=== PATIENT | female | born 1945 | race Caucasian/White ===

== ENCOUNTER 2016-12-20 07:30 | Inpatient (IN) | payer OTHER ==
[2016-12-20] VITALS (22 sets, daily range): BP systolic 107–225; BP diastolic 66–105
[~2016-12-20] VITALS: Ht 172.7 cm; Wt 89.4 kg
--- NOTE | ~2016-12-20 | HC ---
[facility] [place] [address] CONSULTATION Name: NATANAEL HINOJOSA Room #: 200-I ADM IN M.R.#: [id number] Admission: 12/20/16 Attend Phys: Jake Zepeda MD Discharge: Date of : 41 Report #: [id number] THIS REPORT FOR: //name// [facility]: [facility] HISTORY OF PRESENT ILLNESS: The patient is a 71-year-old white female with premorbid history of hypertension, diabetes mellitus, hyperlipidemia, CML who was admitted with increased shortness of breath. Her course was complicated by a code blue with cardiac arrest December 20. She initially had been admitted with severe hypertension. She had a course complicated post the code blue with hypercapnic respiratory failure, was treated for acute congestive heart failure, acute renal insufficiency, question acute tubular necrosis that has since resolved. She has since been extubated. Hematology is involved with her CML. She is being evaluated by Cardiology. We are seeing her now in rehabilitation medicine consultation. PAST MEDICAL HISTORY: Includes CML, hypertension. PAST SURGICAL HISTORY: Includes thyroidectomy, cholecystectomy, skin cancer with melanoma surgery, cornea transplant times four, vitrectomy. HABITS: Former smoker, quit greater than a year ago. No history of ETOH abuse. ALLERGIES: PENICILLIN, DOXYCYCLINE, BENZALKONIUM CHLORIDE and TRAVOPROST. SOCIAL HISTORY: Lives in a house, used a cane. Two steps in. She lives there with her daughter, noted to be developmentally delayed. There is a [id number] apparently in the area that can help as well. Per chart notes, the family could stay with her for a few days if warranted. REVIEW OF SYSTEMS: Did not offer any complaints of chest pain, shortness of breath or abdominal discomfort. No focal extremity pain complaints were verbalized. PHYSICAL EXAMINATION: GENERAL: A 71-year-old white female in no obvious distress. VITAL SIGNS: Last recorded temperature is 99.2, pulse 83, respirations 18, blood pressure 138/75. NEUROLOGIC: She is alert, pleasant, appears to be reasonable with her comments. Facies appeared symmetric. No focal extremity weakness involving her upper body was noted. Lower extremities, no focal distal edema. She is demonstrating strength at least a grade 4-/5. She is min assist with sit to stand transfers, is ambulating 15 feet with a front-wheeled walker. I did see her ambulating as well without the walker in the room and she was at least to contact guard assistance. [address] [address] CONSULTATION Name: NATANAEL HINOJOSA Room #: 200-I ADM IN [facility].#: [id number] Admission: 12/20/16 Attend Phys: Jake Zepeda MD Discharge: Date of : 43 Report #: [id number] ASSESSMENT: A 71-year-old white female with the following problem list: 1. Cardiopulmonary arrest with hypercapnic respiratory failure. She has now been extubated. 2. Code blue on 12/20/2016 noted to be pulseless electrical activity. 3. Initial severe hypertension. 4. Congestive heart failure, noted to be acute. 5. Acute renal insufficiency, now resolved. 6. History of CML with hematology involved. 7. Diabetes mellitus. PLAN: Therapy evaluations are continuing. She was last seen by Physical Therapy on the . She appears to be moving better now and will see how she does in therapies with further assessments. The goal is to improve her overall functional mobility and ADL with the hope of returning back to the home setting. At this point, we will continue to follow along with you regarding her rehab therapy needs. By: 1132 0119 Alvin Yañez MD /nt
--- NOTE | ~2016-12-20 | 2DMMODE ---
[facility] [place] [address] 2 D/M-MODE ECHOCARDIOGRAM Name: NATANAEL HINOJOSA Harsha Room #: 246-P [facility] IN ..#: [id number] Admission: 12/20/16 Attend Phys: Jake Zepeda MD Discharge: Date of : 41 Date of Service: 12/21/16 0901 Report #: [id number] THIS REPORT FOR: //name// APPROVED REPORT Study performed: 12/21/2016 08:01:07 EXAM: Comprehensive 2D, Doppler, and color-flow Echocardiogram Patient Location: Bedside Room #: 246 Blood Pressure: 123/61 mmHg HR: 79 bpm Other Information Study Quality: Adequate/Patient in ICU on vent Indications Acute CHF exacerbation, s/p cardiopulmonary arrest. Hx: HTN, HLP, DM 2D Dimensions RVDd: 41.15 mm LVEF(%): 49.34 (>50%) IVSd: 9.22 (7-11mm) LVOT Diam: 20.84 (18-24mm) LVDd: 56.06 mm PWd: 9.91 (7-11mm) Ascending Aorta: 31.13 mm LVDs: 41.87 (25-40mm) Aortic Root: 28.03 mm Medrano's LVEF: 49.34 % Volumes Left Atrial Volume (Systole) Single Plane 4CH: 55.79 mL Single Plane 2CH: 56.34 mL LA ESV Index: 30.00 mL/m2 Aortic Valve AoV Peak Kendall.: 1.98 m/s AO Peak Gr.: 15.64 mmHg LV Max P.88 mmHg LV Max: 1.57 m/s Mitral Valve E/A Ratio: 0.9 MV Decel. Time: 214.90 ms MV E Max Kendall.: 1.05 m/s [facility] [place] [address] 2 D/M-MODE ECHOCARDIOGRAM Name: NATANAEL HINOJOSA Room #: 246-P [facility] IN M.R.#: [id number] Admission: 12/20/16 Attend Phys: Jake Zepeda MD Discharge: Date of : 43 Date of Service: 12/21/16 0901 Report #: [id number] MV A Kendall.: 1.20 m/s MV PHT: 62.32 ms Pulmonary Valve PV Peak Kendall.: 1.40 m/s PV Peak Gr.: 7.80 mmHg Pulmonary Vein P Vein S: 65.0 m/s P Vein D: 52.4 m/s P Vein A Dur.: 40.6 m/s PVa Duration: 80 Tricuspid Valve TR Peak Kendall.: 2.71 m/s RAP Estimate: 15.00 mmHg TR Peak Gr.: 29.27 mmHg RVSP: 44.00 mmHg Left Ventricle The left ventricle is normal size. There is normal LV segmental wall motion. There is normal left ventricular wall thickness. Left ventricular systolic function is normal. LVEF is 50-55%. Grade I - abnormal relaxation pattern. Right Ventricle The right ventricle is normal size. The right ventricular systolic function is normal. Atria Left atrium is mildly dilated. The right atrium size is normal. Aortic Valve The aortic valve is normal in structure. No aortic regurgitation is present. There is no aortic valvular stenosis. Mitral Valve Mild mitral annular calcification. No mitral regurgitation. Tricuspid Valve The tricuspid valve is normal in structure. There is trace tricuspid regurgitation. The right atrial pressure is estimated at 15 mmHg. There is moderate pulmonary hypertension with an estimated PAP of 44mmHg. Pulmonic Valve The pulmonary valve is normal in structure. Trace pulmonic regurgitation. [address] [address] 2 D/M-MODE ECHOCARDIOGRAM Name: NATANAEL HINOJOSA Harsha Room #: 246-P [facility] IN ..#: [id number] Admission: 12/20/16 Attend Phys: Jake Zepeda MD Discharge: Date of : 43 Date of Service: 12/21/16 0901 Report #: [id number] Great Vessels The aortic root is normal in size. The ascending aorta is normal in size. Descending aorta is not well visualized. IVC is dilated and collapses <50% with inspiration. Pericardium There is no pericardial effusion. <Conclusion> Left ventricular systolic function is normal. There is normal LV segmental wall motion. LVEF is 50-55%. Grade I diastolic dysfunction The aortic valve is normal in structure. No aortic regurgitation or stenosis Mild mitral annular calcification. No mitral regurgitation. There is moderate pulmonary hypertension with an estimated PAP of 44mmHg. There is no pericardial effusion. <ELECTRONICALLY SIGNED> By: Sang He MD, FACC 12/21/16900 0 0 Sang He MD, FACC /INF
--- NOTE | ~2016-12-20 | HC ---
[facility] [place] [address] CONSULTATION Name: NATANAEL HINOJOSA Harsha Room #: 246-P [facility] IN M.R.#: [id number] Admission: 12/20/16 Attend Phys: Jake Zepeda MD Discharge: Date of : 43 Report #: [id number] THIS REPORT FOR: //name// [facility]: [facility] HISTORY OF PRESENT ILLNESS: This patient is known to me from recent diagnosis of chronic myelogenous leukemia. She was admitted through the Emergency Department with complaints of worsening shortness of breath over the past 2 weeks. She currently is in the ICU on a ventilator/intubated but was alert and responsive. On 11/22/2016, she was placed on Sprycel for chronic myelogenous leukemia with a white count of . When I saw her on 12/01/2016, her white count had dropped to 11,700 with a hemoglobin of 11.1 and platelet count of 411,000. An echocardiogram at [facility] prior to treatment showed an ejection fraction of 60%. Her current hemogram shows development of worsening anemia along with thrombocytopenia. PAST MEDICAL HISTORY: Significant for prior melanoma resection. She has had previous thyroidectomy, cholecystectomy, a corneal transplant and history of AVM. ALLERGIES: DOXYCYCLINE, PENICILLIN and TRAVOPROST. HOME MEDICATIONS: In addition to Sprycel include diclofenac, Flonase, metformin, Synthroid, Reglan, omeprazole, Zocor, glipizide, Ditropan, lisinopril, Timoptic, metoprolol, Bactrim and baclofen. FAMILY HISTORY: Noncontributory. SOCIAL HISTORY: She is a reformed smoker who stopped a year ago. REVIEW OF SYSTEMS: Negative for any sweats, chills or fevers. She is unaware of any recent infections. She denies any pain or masses. PHYSICAL EXAMINATION: GENERAL: Shows her to be alert and responsive. HEENT: Shows endotracheal tube in place. NECK: Supple. CHEST: Shows scattered rhonchi. CARDIOVASCULAR: Normal S1, S2. BREASTS: Show no worrisome masses. ABDOMEN: Shows no organomegaly or masses. EXTREMITIES: No clubbing, cyanosis or edema. [facility] [address] [place] [address] CONSULTATION Name: NATANAEL HINOJOSA Room #: 246-P [facility] IN ..#: [id number] Admission: 12/20/16 Attend Phys: Jake Zepeda MD Discharge: Date of : 43 Report #: [id number] NEUROLOGIC: No focal localizing signs. PSYCHIATRIC: Not agitated or confused. SKIN: Clear. LYMPHATICS: Revealed no supraclavicular adenopathy. LABORATORY DATA: Her chest x-ray shows perihilar infiltrates with acute hypercapnic hypoxic respiratory failure on her blood gases and metabolic acidosis along with hypokalemia. ASSESSMENT: Chronic myelogenous leukemia. PLAN: We discussed with her, we would hold her current Sprycel as her platelets have dropped and she is now thrombocytopenic and anemic. This drug can cause fluid retention along with pulmonary hypertension and may be contributing to her current shortness of breath, so earlier she was iron deficient on her marrow and with worsening anemia, these and other comorbidities with her prior smoking history are also involved. Hopefully, we can diurese her with subsequent improvement in her complaints and can transfuse if needed with packed red cells. Thanks for allowing me to see her in consultation asking me to participate in her care. <ELECTRONICALLY SIGNED> By: Radha Moreno MD 12/22/16 0924 1533 2135 Radha Moreno MD /nt
--- NOTE | ~2016-12-20 | EKG ---
[address] [place] [address] ELECTROCARDIOGRAM REPORT Name: ASHISHNATANAEL Mcleod Room #: 246-P ADM IN M.R.#: [id number] Admission: 12/20/16 Attend Phys: Jake Zepeda MD Discharge: Date of : 43 Report #: [id number] THIS REPORT FOR: //name// [facility] Test Date: 2016-12-22 Test Time: 12:39:10 Pat Name: NATANAEL HINOJOSA Department: Room: 246 P Gender: F Pediatric Nurse Practitioner: Samanta HORNE : 1945 Requested By: Fly Gilmore Order Number: [id number] MD: Sang He Measurements Intervals [place] Rate: 79 P: 62 [place]: 140 QRS: -9 QRSD: 97 T: -21 QT: 465 QTc: 534 Interpretive Statements Sinus rhythm Borderline T abnormalities Prolonged QT interval Compared to ECG 12/21/2016 06:36:32 Poor R-wave progression no longer present Electronically Signed On 12-23-2016 8:46:20 CDT by Sang He [email or web address] <ELECTRONICALLY SIGNED> By: Sang He MD, [facility] 12/23/16 0846 1239 1239 Sang He MD, [facility] /EPI
--- NOTE | ~2016-12-20 | EKG ---
[address] [place] [place] [address] ELECTROCARDIOGRAM REPORT Name: ASHISHNATANAEL Room #: 246-P ADM IN M.R.#: [id number] Admission: 12/20/16 Attend Phys: Jake Zepeda MD Discharge: Date of : 43 Report #: [id number] THIS REPORT FOR: //name// [facility] Test Date: 2016-12-21 Test Time: 06:36:32 Pat Name: NATANAEL HINOJOSA Department: Room: 246 P Gender: F Optometry Doctor: emmy : 1945 Requested By: Sang He Order Number: [id number] MD: Sang He Measurements Intervals [place] Rate: 75 P: 59 [place]: 133 QRS: -2 QRSD: 100 T: -11 QT: 494 QTc: 552 Interpretive Statements Sinus rhythm Poor R wave progression Borderline T abnormalities, inferior leads Prolonged QT interval Baseline wander in lead(s) V6 Compared to ECG 12/20/2016 07:58:59 axis has shifted rightward Electronically Signed On 12-21-2016 8:47:39 CDT by Sang He [email or web address] <ELECTRONICALLY SIGNED> By: Sang He MD, [facility] 12/21/16 0847 0636 0636 Sang He MD, [facility] /EPI
--- NOTE | ~2016-12-20 | HC ---
[facility] [place] [address] CONSULTATION Name: NATANAEL HINOJOSA Room #: 246-P ADM IN M.R.#: [id number] Admission: 12/20/16 Attend Phys: Jake Zepeda MD Discharge: Date of : 43 Report #: [id number] THIS REPORT FOR: //name// CC: Jake Harrison PRIMARY CARE PHYSICIAN: [facility]. REFERRAL PHYSICIAN: Jake Zepeda MD REASON FOR REFERRAL: Acute respiratory failure. HISTORY OF PRESENT ILLNESS: The patient is a 71-year-old white female who presents to the emergency room with progressive dyspnea. While in the ER, the patient was in severe respiratory distress and became apneic. CPR was performed, patient was intubated. A pulmonary consultation was requested. The patient has been sick for about a month. She was recently diagnosed with chronic myelogenous leukemia at [facility]. According to the family, the patient's white count has been up to 90,000. Again, she has dyspnea for the past month, which has progressively worsened. This morning, her dyspnea was much more severe. Chest x-ray suggests perihilar infiltrates. Otherwise, history is limited as the patient is intubated. She is orally intubated, but also an NG is in place with bloody secretions. PAST MEDICAL HISTORY: Notable for recent diagnosis of CML, undergoing treatment at [facility], history of AVM, melanoma status post surgical resection. PAST SURGICAL HISTORY: Include lens implantation, thyroidectomy, cholecystectomy, corneal transplant to the right eye. ALLERGIES: DOXYCYCLINE, PENICILLIN, TRAVOPROST. HOME MEDICATIONS: Include diclofenac, Flonase, metformin, Synthroid, Reglan, omeprazole, Zocor, glipizide, Ditropan, lisinopril, Timoptic eyedrops, metoprolol, Bactrim, baclofen. FAMILY HISTORY: Noncontributory. SOCIAL HISTORY: The patient has smoked in the past, but quit over a year ago. There is no history of alcohol use. REVIEW OF SYSTEMS: Deferred as the patient is intubated. [address] [address] CONSULTATION Name: NATANAEL HINOJOSA Harsha Room #: 246-P [facility] IN ..#: [id number] Admission: 12/20/16 Attend Phys: Jake Zepeda MD Discharge: Date of : 43 Report #: [id number] PHYSICAL EXAMINATION: GENERAL: She is sedated, but is awakening. She is orally intubated. VITAL SIGNS: Temperature is 99.3 degrees Fahrenheit, pulse is 100, respiratory rate is 22, blood pressure 144/92 mmHg, saturation 95%. HEENT: Normocephalic, atraumatic. She is orally intubated. NECK: Supple, without any lymphadenopathy or thyromegaly. CHEST: Breath sounds are moderate with few scattered crackles. CARDIOVASCULAR: Heart sounds, normal S1, S2. No obvious murmurs or gallop. Pulses are 2+/4+ bilaterally. BREASTS: Deferred. ABDOMEN: Soft, nontender, no organomegaly or masses felt. GENITOURINARY AND RECTAL: Deferred. EXTREMITIES: There is no cyanosis or clubbing, edema. LABORATORY DATA: Chest x-ray shows bilateral perihilar infiltrates. ET tube is inappropriate, 2.5 cm above the robert. No obvious effusion seen. NG is in place. CT head was unremarkable. Sodium 133, potassium 5.6, chloride 100, CO2 is 22, BUN is 27, creatinine is 1.1, on admission was 1.4, glucose was 300-400. Liver function profile is mildly elevated. WBC 10,400 without significant bandemia. Platelets mildly reduced at 108,000, hemoglobin is 9.4 with normal MCH, MCV. Albumin 2.7. Arterial blood gas on admission revealed pH 7.01, pCO2 60, pO2 194 on FiO2 of 60%. IMPRESSION: 1. Acute hypercapnic hypoxic respiratory failure in this 71-year-old white female. Chest x-ray shows perihilar infiltrates. She has a recent diagnosis of chronic myelogenous leukemia, currently undergoing chemotherapy. 2. Etiology likely related to congestive heart failure. Source of the heart failure possibly related to cardiomyopathy related to chemotherapeutic agent. Baseline echocardiogram would be helpful. Pneumonia is possible, though felt to be less likely. Pulmonary embolus is also felt to be less likely. 3. Chronic myelogenous leukemia, normally followed at [facility]. 4. Acute kidney injury, with marked improvement in creatinine. She also has metabolic acidosis along with hypokalemia. This is felt to be related to heart failure resulting in hypoperfusion, hypotension resulting in organ ischemia. 5. Elevated troponin due to increase in myocardial demand due to above. 6. Anemia, thrombocytopenia, presumably related to recent chemotherapy. Her white count was said to be 90,000, currently is 10,400. Records from [facility] will be requested. 7. Severe protein-calorie malnutrition with an albumin of 2.7. RECOMMENDATION: We will continue mechanical ventilation and wean once clinically stable. Agree with diuretics. We will continue to monitor metabolic acidosis closely. She is correcting nicely. She is also responding to Lasix very well. We will sent sputum for Gram stain culture and sensitivity. [facility] [address] [place] [address] CONSULTATION Name: NATANAEL HINOJOSA Room #: 246-P ADM IN ..#: [id number] Admission: 12/20/16 Attend Phys: Jake Zepeda MD Discharge: Date of : 43 Report #: [id number] GI prophylaxis will be addressed. Thank you for this consultation. <ELECTRONICALLY SIGNED> By: Quinton Etinene MD 12/21/16 1521 1422 2222 Quinton Etienne MD /nt
--- NOTE | ~2016-12-20 | EKG ---
[address] [address] [place] [address] ELECTROCARDIOGRAM REPORT Name: NATANAEL HINOJOSA Room #: REG DYLAN Kelly#: [id number] Admission: 12/20/16 Attend Phys: Discharge: Date of : 41 Report #: [id number] THIS REPORT FOR: //name// [facility] ED Test Date: 2016-12-20 Test Time: 07:58:59 Pat Name: NATANAEL HINOJOSA Department: Room: Gender: F Technician Assistant: [email or web address] : 1945 Requested By: Shahriar Rhoades Order Number: [id number] MD: Sang He Measurements Intervals [place] Rate: 120 P: 56 [place]: 117 QRS: -49 QRSD: 120 T: 103 QT: 327 QTc: 462 Interpretive Statements Sinus tachycardia Left anterior fascicular block Poor R-wave progression Baseline wander Compared to ECG 11/21/2016 16:27:14 Left anterior fascicular block now present nonspecific change in the ST and T wave segments Heart rate has increased nonspecific intraventricular conduction delay is present Electronically Signed On 12-20-2016 8:43:44 CDT by Sang He [email or web address] <ELECTRONICALLY SIGNED> By: Sang He MD, [facility] 12/20/16 0843 0758 0758 Sang He MD, [facility] /EPI
--- NOTE | ~2016-12-20 | EKG ---
[place] [address] [facility] [place] [address] ELECTROCARDIOGRAM REPORT Name: ASHISHNATANAEL Mcleod Room #: 246-P ADM IN M.R.#: [id number] Admission: 12/20/16 Attend Phys: Jake Zepeda MD Discharge: Date of : 43 Report #: [id number] THIS REPORT FOR: //name// [facility] ED Test Date: 2016-12-20 Test Time: 09:18:05 Pat Name: NATANAEL HINOJOSA Department: Room: 246 P Gender: F Tarring Machine Operator: jones rincon : 1945 Requested By: Shahriar Rhoades Order Number: [id number] MD: Sang He Measurements Intervals [place] Rate: 115 P: 66 SD: 149 QRS: -42 QRSD: 110 T: 81 QT: 344 QTc: 476 Interpretive Statements Sinus tachycardia Left anterior fascicular block Poor R wave progression Compared to ECG 12/20/2016 07:58:59 no significant change was found Electronically Signed On 12-21-2016 8:26:45 CDT by Sang He [email or web address] <ELECTRONICALLY SIGNED> By: Sang He MD, [facility] 12/21/16825 7 7 Sang He MD, [facility] /EPI
[~2016-12-20 07:30] MED LIST: ADVAIR 250-501 EACH; BACTRIM DS TAB1 EACH PO; BETIMOL; BRIMONIDINE TAR1 BO1 OP; DICLOFENAC SOD50 M1 PO; DITROPAN XL10 MG PO; FEXOFENADINE HC30 MG PO; FLONASE 0.05%50 MCG NASAL; GLIPIZIDE XL5 MG PO; GLUMETZA1000 PO; IBUPROFEN 800800 M1 PO; LIORESAL 10 MG10 MG PO; LISINOPRIL40 MG PO; MECLIZINE HCL12.5 MG PO; METOPROLOL SUCC25 M1 PO; MURO-128 5% OPH15 M1 OP; OMEPRAZOLE20 M2 PO; REGLAN 5 MG TAB5 M1 PO; SYNTHROID112 MCG PO; TRUSOPT OCUMETE10 M1; ZOCOR 10 MG TAB10 M1 PO; ZOFRAN ODT4 MG PO; ZYMAR5 ML
[2016-12-20 08:03] LABS: ABG SAMPLE TYPE ARTERIAL; BE(vivo) -15.9 mmol/L (-2 to +3); HCO3 14.9 mmol/L (22.0-26.0); O2(CT) 14.6 mL/dL (15.0-23.0); O2Hb 97.8 % (92.0-98.0); PCO2 60.3 mmHg (35.0-45.0); PO2 194.9 mmHg (80.0-100.0); sO2 98.7 % (92.0-98.0); tCO2 16.8 mmol/L (24.0-30.0)
[2016-12-20 08:05] LABS: LACTATE 8.19 mmol/L (0.5-2.0); pH 7.012 (7.360-7.450)
[2016-12-20 08:06] LABS: STICK SITE R.RADIAL; TIDAL VOLUME 550 ml
[2016-12-20 08:24] LABS: HEMATOCRIT 30.3 % (37.0-47.0); HEMOGLOBIN 9.4 gm/dL (12.0-15.0); MCH 27.7 pg (26.0-34.0); MCHC 31.1 g/dL (28.0-37.0); PLATELET COUNT 108 thou/uL (150-400); RDW 27.4 % (10.5-14.5); WBC 10.4 thou/uL (4.0-11.0)
[2016-12-20 08:24] LABS: URINE BILIRUBIN NEGATIVE (Negative); URINE BLOOD NEGATIVE (Negative); URINE COLOR YELLOW; URINE GLUCOSE-RANDOM* NEGATIVE (Negative); URINE KETONES TRACE (Negative); URINE NITRITE NEGATIVE (Negative); URINE PROTEIN (DIPSTICK) 2+ (Negative); URINE UROBILINOGEN 0.2 E.U./dl (0.2-1.0)
[2016-12-20 08:27] LABS: MANUAL DIFF YES
[2016-12-20 08:35] LABS: CALCIUM 6.5 mg/dL (8.5-10.1); CREATININE 1.4 mg/dL (0.6-1.0); POTASSIUM 5.5 mmol/L (3.5-5.1)
[2016-12-20 08:37] LABS: INR 1.1; PROTIME 11.9 Seconds (9.3-11.4)
[2016-12-20 08:45] LABS: AMORPHOUS URATES Moderate /LPF (None Seen); BACTERIA 1-9 Few /HPF (None Seen); CASTS None Seen /LPF (None Seen); SQUAMOUS 0-3 Few /LPF (0-3); URINE RBC None Seen /HPF (0-2); URINE WBC None Seen /HPF (0-5)
[2016-12-20 08:47] LABS: ALBUMIN 2.7 g/dL (3.4-5.0); TOTAL BILIRUBIN 0.6 mg/dL (<0.1-1.0); TOTAL PROTEIN 6.5 g/dL (6.4-8.2); TROPONIN-I 0.16 ng/mL (<0.04-0.07)
[2016-12-20 08:49] LABS: ABSOLUTE NEUTROPHILS 7.5 thou/uL (1.4-8.2); ANISOCYTOSIS 3+; MACROCYTES 1+; METAMYELOCYTES 1 %; MICROCYTES 1+; POLYCHROMASIA OCCASIONAL; TOTAL CELL COUNT 100
[2016-12-20 10:47] LABS: CALCIUM 6.6 mg/dL (8.5-10.1); CREATININE 1.2 mg/dL (0.6-1.0); MAGNESIUM 1.9 mg/dL (1.8-2.4)
[2016-12-20 11:01] LABS: POTASSIUM 6.1 mmol/L (3.5-5.1)
[2016-12-20 11:18] LABS: ABG SAMPLE TYPE ARTERIAL; BE(vivo) -5.8 mmol/L (-2 to +3); LACTATE 1.89 mmol/L (0.5-2.0); O2(CT) 13.7 mL/dL (15.0-23.0); O2Hb 91.6 % (92.0-98.0); PCO2 40.8 mmHg (35.0-45.0); STICK SITE R.RADIAL; TIDAL VOLUME 580 ml; pH 7.309 (7.360-7.450); sO2 92.9 % (92.0-98.0); tCO2 21.3 mmol/L (24.0-30.0)
[2016-12-20 14:00] LABS: CALCIUM 6.7 mg/dL (8.5-10.1); CREATININE 1.1 mg/dL (0.6-1.0); POTASSIUM 5.6 mmol/L (3.5-5.1)
[2016-12-21] VITALS (75 sets, daily range): BP systolic 110–162; BP diastolic 53–94
[2016-12-21 05:02] LABS: HEMATOCRIT 23.1 % (37.0-47.0); HEMOGLOBIN 7.6 gm/dL (12.0-15.0); MCH 27.6 pg (26.0-34.0); MCHC 32.8 g/dL (28.0-37.0); MCV 84.2 fL (80.0-100.0); RBC 2.75 mil/uL (4.20-5.00); RDW 27.8 % (10.5-14.5); WBC 4.9 thou/uL (4.0-11.0)
[2016-12-21 05:09] LABS: CALCIUM 6.9 mg/dL (8.5-10.1); CREATININE 0.9 mg/dL (0.6-1.0)
[2016-12-21 05:14] LABS: POTASSIUM 3.4 mmol/L (3.5-5.1)
[2016-12-21 16:14] LABS: ABG SAMPLE TYPE ARTERIAL; BE(vivo) -2.8 mmol/L (-2 to +3); HCO3 20.4 mmol/L (22.0-26.0); LACTATE 0.98 mmol/L (0.5-2.0); O2(CT) 11.3 mL/dL (15.0-23.0); O2Hb 96.7 % (92.0-98.0); PCO2 29.2 mmHg (35.0-45.0); PO2 130.2 mmHg (80.0-100.0); STICK SITE R.RADIAL; pH 7.463 (7.360-7.450); sO2 98.8 % (92.0-98.0); tCO2 21.3 mmol/L (24.0-30.0)
[2016-12-21 16:15] LABS: TIDAL VOLUME 580 ml
[2016-12-22] VITALS (22 sets, daily range): BP systolic 109–170; BP diastolic 57–97
[2016-12-22 04:47] LABS: HEMATOCRIT 22.5 % (37.0-47.0); HEMOGLOBIN 7.5 gm/dL (12.0-15.0); MCH 28.1 pg (26.0-34.0); MCHC 33.2 g/dL (28.0-37.0); MCV 84.6 fL (80.0-100.0); RBC 2.66 mil/uL (4.20-5.00); RDW 28.6 % (10.5-14.5); WBC 5.6 thou/uL (4.0-11.0)
[2016-12-22 04:56] LABS: CREATININE 0.7 mg/dL (0.6-1.0)
[2016-12-22 08:14] LABS: ABG COMMENT CPAP TRIAL; ABG SAMPLE TYPE ARTERIAL; BE(vivo) -3.8 mmol/L (-2 to +3); HCO3 20.1 mmol/L (22.0-26.0); LACTATE 0.88 mmol/L (0.5-2.0); O2(CT) 10.9 mL/dL (15.0-23.0); PCO2 31.2 mmHg (35.0-45.0); PO2 97.3 mmHg (80.0-100.0); Pressure Support 5 cm H20; STICK SITE R.BRACHIAL; pH 7.426 (7.360-7.450); sO2 97.6 % (92.0-98.0)
[2016-12-22 16:25] LABS: POTASSIUM 3.7 mmol/L (3.5-5.1); TROPONIN-I 0.47 ng/mL (<0.04-0.07)
[2016-12-23] VITALS (8 sets, daily range): BP systolic 109–142; BP diastolic 60–75
[2016-12-23 05:11] LABS: CREATININE 0.6 mg/dL (0.6-1.0); POTASSIUM 3.4 mmol/L (3.5-5.1)
[2016-12-23 05:16] LABS: CALCIUM 5.4 mg/dL (8.5-10.1)
[2016-12-23 09:53] LABS: ABG SAMPLE TYPE ARTERIAL; BE(vivo) -1.2 mmol/L (-2 to +3); HCO3 22.3 mmol/L (22.0-26.0); LACTATE 0.97 mmol/L (0.5-2.0); O2(CT) 12.2 mL/dL (15.0-23.0); O2Hb 95.3 % (92.0-98.0); PCO2 32.8 mmHg (35.0-45.0); PO2 100.3 mmHg (80.0-100.0); Pressure Support 8 cm H20; STICK SITE R.RADIAL; pH 7.451 (7.360-7.450); sO2 97.9 % (92.0-98.0); tCO2 23.3 mmol/L (24.0-30.0)
[2016-12-24] VITALS (13 sets, daily range): BP systolic 111–147; BP diastolic 50–77
[2016-12-24 04:24] LABS: HEMATOCRIT 25.9 % (37.0-47.0); HEMOGLOBIN 8.3 gm/dL (12.0-15.0); MCH 27.9 pg (26.0-34.0); MCHC 32.2 g/dL (28.0-37.0); MCV 86.8 fL (80.0-100.0); RBC 2.98 mil/uL (4.20-5.00); RDW 27.1 % (10.5-14.5); WBC 5.9 thou/uL (4.0-11.0)
[2016-12-24 04:45] LABS: CREATININE 0.7 mg/dL (0.6-1.0)
[2016-12-24 04:53] LABS: CALCIUM 5.6 mg/dL (8.5-10.1)
[2016-12-24 13:43] LABS: MAGNESIUM 1.9 mg/dL (1.8-2.4); POTASSIUM 3.9 mmol/L (3.5-5.1)
[2016-12-25 02:50] VITALS: BP 162/81
[2016-12-25 07:20] VITALS: BP 130/63
[2016-12-25 11:15] VITALS: BP 129/74
[2016-12-25 16:20] VITALS: BP 133/71
[2016-12-25 19:11] VITALS: BP 127/62
[2016-12-26 02:54] VITALS: BP 139/77
[2016-12-26 07:30] VITALS: BP 100/66; BP 141/76
[2016-12-26 08:40] VITALS: BP 123/80; BP 130/75
[2016-12-26 13:45] LABS: HEMATOCRIT 26.6 % (37.0-47.0); HEMOGLOBIN 8.9 gm/dL (12.0-15.0); MCHC 33.4 g/dL (28.0-37.0); MCV 83.7 fL (80.0-100.0); RBC 3.17 mil/uL (4.20-5.00); RDW 27.1 % (10.5-14.5); WBC 9.8 thou/uL (4.0-11.0)
[2016-12-26 13:52] LABS: CREATININE 0.8 mg/dL (0.6-1.0); MAGNESIUM 1.4 mg/dL (1.8-2.4); POTASSIUM 3.4 mmol/L (3.5-5.1)
[2016-12-26 13:56] LABS: CALCIUM 5.6 mg/dL (8.5-10.1)
[2016-12-26 18:00] VITALS: BP 123/62
[2016-12-26 19:09] VITALS: BP 137/59
[2016-12-26 21:18] LABS: POTASSIUM 3.2 mmol/L (3.5-5.1)
[2016-12-27 05:07] VITALS: BP 138/63
[2016-12-27 07:12] VITALS: BP 138/75
[2016-12-27 11:32] VITALS: BP 132/80
[2016-12-27 14:18] VITALS: BP 132/80
[2016-12-27 15:09] LABS: HEMATOCRIT 27.7 % (37.0-47.0); HEMOGLOBIN 9.1 gm/dL (12.0-15.0); MCH 28.1 pg (26.0-34.0); MCHC 32.8 g/dL (28.0-37.0); MCV 85.6 fL (80.0-100.0); RBC 3.24 mil/uL (4.20-5.00); RDW 27.2 % (10.5-14.5); WBC 10.2 thou/uL (4.0-11.0)
[2016-12-27 15:14] LABS: CALCIUM 6.3 mg/dL (8.5-10.1); CREATININE 0.8 mg/dL (0.6-1.0); POTASSIUM 3.6 mmol/L (3.5-5.1)
[2016-12-27 16:59] VITALS: BP 116/69
[2016-12-27 19:10] VITALS: BP 126/45
[2016-12-28 03:22] VITALS: BP 127/51
[2016-12-28 04:26] LABS: CALCIUM 6.8 mg/dL (8.5-10.1); CREATININE 0.7 mg/dL (0.6-1.0); MAGNESIUM 1.8 mg/dL (1.8-2.4); POTASSIUM 3.6 mmol/L (3.5-5.1)
[2016-12-28 04:42] LABS: HEMATOCRIT 24.8 % (37.0-47.0); HEMOGLOBIN 8.1 gm/dL (12.0-15.0); MCH 27.8 pg (26.0-34.0); MCHC 32.5 g/dL (28.0-37.0); MCV 85.8 fL (80.0-100.0); RBC 2.9 mil/uL (4.20-5.00); RDW 27.1 % (10.5-14.5); WBC 6.1 thou/uL (4.0-11.0)
[2016-12-28 07:05] VITALS: BP 155/59
[2016-12-28 11:15] VITALS: BP 124/63
[2016-12-28] MEDS ORDERED: DEMADEX 2020 MG/1 TA PO (11:42)
[2016-12-28] MEDS ORDERED: ALTACE5 MG PO (11:42)
[2016-12-28] MEDS ORDERED: K-DUR 20 MEQ T20 MEQ PO (11:42)
[2016-12-28] MEDS ORDERED: OXYCODONE HCL 55 MG PO (11:42)
[2016-12-28] MEDS ORDERED: PREDNISONE 20 M20 M1 PO (11:42)
[2016-12-28] MEDS ORDERED: LOPERAMIDE 2 MG2 M1 PO (11:42)
[2016-12-28] MEDS ORDERED: DUONEB 2.5-0.5 M3 ML INH (14:32)
== END 2016-12-28 18:30 | disposition home health service (06) | DRG 208 ==
LOC: ER 07:30 → ICU 09:26 → EROBS 09:26 → ICU 11:03 → 2N 12-24 12:09
PROVIDERS: Emergency Medicine; Hospitalist; Internal Medicine; Internal Medicine Hematology & Oncology; Internal Medicine Pulmonary Disease
DX: J96.02 Acute respiratory failure with hypercapnia (principal); I46.9 Cardiac arrest, cause unspecified; N17.0 Acute kidney failure with tubular necrosis; E43 Unspecified severe protein-calorie malnutrition; I50.33 Acute on chronic diastolic (congestive) heart failure; C92.10 Chronic myeloid leukemia, BCR/ABL-positive, not having achieved remission; C92.Z0 Other myeloid leukemia not having achieved remission; E89.0 Postprocedural hypothyroidism; J96.01 Acute respiratory failure with hypoxia; D64.9 Anemia, unspecified; E83.42 Hypomagnesemia; R00.0 Tachycardia, unspecified; J45.909 Unspecified asthma, uncomplicated; R49.0 Dysphonia; D69.6 Thrombocytopenia, unspecified; R19.7 Diarrhea, unspecified; E11.65 Type 2 diabetes mellitus with hyperglycemia; I11.0 Hypertensive heart disease with heart failure; E11.9 Type 2 diabetes mellitus without complications; E78.5 Hyperlipidemia, unspecified; Z96.1 Presence of intraocular lens; I27.2 Other secondary pulmonary hypertension; Z90.49 Acquired absence of other specified parts of digestive tract; Z79.899 Other long term (current) drug therapy; Z94.7 Corneal transplant status; Z88.1 Allergy status to other antibiotic agents; Z88.8 Allergy status to other drugs, medicaments and biological substances; Z87.891 Personal history of nicotine dependence; Z88.0 Allergy status to penicillin; Z68.30 Body mass index [BMI] 30.0-30.9, adult; Z85.828 Personal history of other malignant neoplasm of skin
CPT/HCPCS: 10078; 10081; 27000

== ENCOUNTER → 2017-01-14 | Outpatient (CLI) | payer OTHER ==
[~2017-01-14] MED LIST changes: +ALLOPURINOL 30300 M2 PO; +ALTACE5 MG PO; +BOSULIF500 MG PO; +DEMADEX 2020 MG/1 TA PO; +DUONEB 2.5-0.5 M3 ML INH; +IRON325 PO; +K-DUR 20 MEQ T20 MEQ PO; +LOPERAMIDE 2 MG2 M1 PO; +OXYCODONE HCL 55 MG PO; +PREDNISONE 20 M20 M1 PO; +PREDNISONE 20 M20 MG PO; +TIMOLOL 0.25%; +ZOFRAN ODT8 MG PO
== END ==
LOC: RAD 10:48
DX: R91.8 Other nonspecific abnormal finding of lung field (principal)

== ENCOUNTER 2017-01-16 11:29 | Emergency (ER) | payer OTHER ==
[~2017-01-16] VITALS: Ht 162.6 cm; Wt 85.7 kg
--- NOTE | ~2017-01-16 | EKG ---
[address] [place] [address] ELECTROCARDIOGRAM REPORT Name: ASHISHNATANAEL Harsha [id number] Admission: 01/16/17 Attend Phys: Discharge: 01/16/17 Date of : 41 Report #: [id number] THIS REPORT FOR: //name// [facility] ED Test Date: 2017-01-16 Test Time: 11:32:46 Pat Name: NATANAEL HINOJOSA Department: Room: Gender: F Public Bath Attendant: RENNY : 1945 Requested By: Shahriar Rhoades Order Number: [id number] MD: Sang He Measurements Intervals [place] Rate: 51 P: 38 [place]: 152 QRS: -11 QRSD: 107 T: 10 QT: 478 QTc: 441 Interpretive Statements Sinus rhythm Compared to ECG 12/22/2016 12:39:10 T-wave abnormality no longer present Prolonged QT interval no longer present Electronically Signed On 01-17-2017 8:52:35 CDT by Sang He [email or web address] <ELECTRONICALLY SIGNED> By: Sang He MD, [facility] 01/17/17 0852 31 31 Sang He MD, [facility] /EPI
[~2017-01-16 11:29] MED LIST changes: -ALLOPURINOL 30300 M2 PO; -BOSULIF500 MG PO; -IRON325 PO; -PREDNISONE 20 M20 MG PO; -TIMOLOL 0.25%; -ZOFRAN ODT8 MG PO
[2017-01-16 12:08] LABS: HEMATOCRIT 32.3 % (37.0-47.0); HEMOGLOBIN 10.9 gm/dL (12.0-15.0); MCH 29.5 pg (26.0-34.0); MCHC 33.6 g/dL (28.0-37.0); MCV 87.9 fL (80.0-100.0); PLATELET COUNT 266 thou/uL (150-400); RBC 3.68 mil/uL (4.20-5.00); RDW 23.8 % (10.5-14.5)
[2017-01-16 12:09] LABS: MANUAL DIFF YES
[2017-01-16 12:22] LABS: ANION GAP 9 mmol/L (7-16); BUN 7 mg/dL (7-18); CHLORIDE 108 mmol/L (98-107); CO2 17 mmol/L (21-32); CREATININE 0.5 mg/dL (0.6-1.0); GLUCOSE 124 mg/dL (74-106); NT-PRO BRAIN NAT PEPTIDE 666 pg/mL (<300); SODIUM 134 mmol/L (136-145); TROPONIN-I < 0.04 ng/mL (<0.04-0.07)
[2017-01-16 12:27] LABS: CALCIUM 5.7 mg/dL (8.5-10.1); POTASSIUM 2.9 mmol/L (3.5-5.1)
[2017-01-16 12:33] LABS: ABSOLUTE NEUTROPHILS 5.4 thou/uL (1.4-8.2); ANISOCYTOSIS 3+; ATYPICAL LYMPHS 1 %; POLYCHROMASIA OCCASIONAL; TOTAL CELL COUNT 100
[2017-01-16] MEDS ORDERED: ZOFRAN ODT8 MG PO (14:54)
[2017-01-16] MEDS ORDERED: PREDNISONE 20 M20 MG PO (14:55)
[2017-01-16 16:18] VITALS: BP 153/49
== END 2017-01-16 16:19 | disposition home or self-care (01) ==
LOC: ER 11:29
PROVIDERS: Emergency Medicine
DX: E87.6 Hypokalemia (principal); I50.9 Heart failure, unspecified; J45.909 Unspecified asthma, uncomplicated; Z85.828 Personal history of other malignant neoplasm of skin; Z88.1 Allergy status to other antibiotic agents; Z88.0 Allergy status to penicillin; Z88.8 Allergy status to other drugs, medicaments and biological substances; Z87.891 Personal history of nicotine dependence

== ENCOUNTER 2017-01-18 18:47 | Inpatient (IN) | payer OTHER ==
[~2017-01-18] VITALS: Ht 162.6 cm; Wt 85.3 kg
--- NOTE | ~2017-01-18 | EKG ---
[address] [address] ELECTROCARDIOGRAM REPORT Name: NATANAEL HINOJOSA Room #: 305-P ADM IN M.R.#: [id number] Admission: 01/18/17 Attend Phys: Devaughn Willis DO Discharge: Date of : 41 Report #: [id number] THIS REPORT FOR: //name// [facility] ED Test Date: 2017-01-18 Test Time: 19:01:16 Pat Name: NATANAEL HINOJOSA Department: Room: 305 Gender: F Dancing Teacher: АНДРЕЙ : 1945 Requested By: Linda Low Order Number: [id number] MD: Rudy Rai Measurements Intervals [place] Rate: 58 P: 39 [place]: 152 QRS: -23 QRSD: 104 T: 4 QT: 449 QTc: 442 Interpretive Statements Sinus rhythm Left ventricular hypertrophy Baseline wander in lead(s) I,II,aVR Compared to ECG 01/16/2017 11:32:46 Left ventricular hypertrophy now present Electronically Signed On 01-19-2017 9:31:26 CDT by Rudy Rai [email or web address] <ELECTRONICALLY SIGNED> By: Rudy Rai MD 01/19/17 0931 00 00 Rudy Rai MD /EPI
[~2017-01-18 18:47] MED LIST changes: +PREDNISONE 20 M20 MG PO; +ZOFRAN ODT8 MG PO
[2017-01-18 18:51] VITALS: BP 149/74
[2017-01-18] MEDS ORDERED: ALLOPURINOL 30300 M2 PO (19:01)
[2017-01-18] MEDS ORDERED: BOSULIF500 MG PO (19:01)
[2017-01-18] MEDS ORDERED: IRON325 PO (19:02)
[2017-01-18 19:28] LABS: ABSOLUTE NEUTROPHILS 8.8 thou/uL (1.4-8.2); BASOPHILS 1.4 % (0.0-2.0); EOSINOPHILS 0.5 % (0.0-3.0); HEMATOCRIT 33.1 % (37.0-47.0); HEMOGLOBIN 10.8 gm/dL (12.0-15.0); LYMPHOCYTES 14.3 % (24.0-44.0); MCH 29.1 pg (26.0-34.0); MCHC 32.7 g/dL (28.0-37.0); MONOCYTES 11.2 % (1.0-8.0); PLATELET COUNT 247 thou/uL (150-400); POLYS 72.6 % (36.0-66.0); RBC 3.72 mil/uL (4.20-5.00); RDW 23.3 % (10.5-14.5); WBC 12.2 thou/uL (4.0-11.0)
[2017-01-18 19:29] LABS: MANUAL DIFF NO
[2017-01-18 19:34] LABS: CREATININE 0.9 mg/dL (0.6-1.0); POTASSIUM 4.2 mmol/L (3.5-5.1)
[2017-01-18 19:40] LABS: CALCIUM 8.5 mg/dL (8.5-10.1)
[2017-01-18 20:48] LABS: URINE BILIRUBIN NEGATIVE (Negative); URINE BLOOD NEGATIVE (Negative); URINE COLOR YELLOW; URINE GLUCOSE-RANDOM* NEGATIVE (Negative); URINE KETONES TRACE (Negative); URINE NITRITE NEGATIVE (Negative); URINE PROTEIN (DIPSTICK) NEGATIVE (Negative); URINE SPECIFIC GRAVITY <= 1.005 (1.003-1.035); URINE UROBILINOGEN 0.2 E.U./dl (0.2-1.0)
[2017-01-18 21:12] VITALS: BP 141/71
[2017-01-18 21:25] VITALS: BP 166/65
[2017-01-18] MEDS ORDERED: TIMOLOL 0.25% (22:49)
[2017-01-19 04:00] VITALS: BP 136/54
[2017-01-19 06:18] LABS: HEMOGLOBIN 10.2 gm/dL (12.0-15.0); MCH 29.3 pg (26.0-34.0); MCHC 32.9 g/dL (28.0-37.0); MCV 88.9 fL (80.0-100.0); RBC 3.49 mil/uL (4.20-5.00); RDW 22.9 % (10.5-14.5); WBC 10.7 thou/uL (4.0-11.0)
[2017-01-19 06:32] LABS: ALBUMIN 3.3 g/dL (3.4-5.0); CALCIUM 8.1 mg/dL (8.5-10.1); CREATININE 0.9 mg/dL (0.6-1.0); POTASSIUM 3.8 mmol/L (3.5-5.1); TOTAL BILIRUBIN 0.3 mg/dL (<0.1-1.0); TOTAL PROTEIN 6.4 g/dL (6.4-8.2)
[2017-01-19 08:26] VITALS: BP 130/51
[2017-01-19] MEDS ORDERED: CARAFATE 1 GM TA1 G1 PO (12:19)
[2017-01-19] MEDS ORDERED: PEPCID20 MG PO (12:20)
[2017-01-19 16:14] VITALS: BP 133/64
[2017-01-19 20:45] VITALS: BP 139/61
[2017-01-20 03:35] VITALS: BP 158/68
[2017-01-20 05:14] LABS: ABSOLUTE NEUTROPHILS 6.5 thou/uL (1.4-8.2); BASOPHILS 2.8 % (0.0-2.0); EOSINOPHILS 1.5 % (0.0-3.0); HEMATOCRIT 29.3 % (37.0-47.0); HEMOGLOBIN 9.9 gm/dL (12.0-15.0); LYMPHOCYTES 15.5 % (24.0-44.0); MCH 29.8 pg (26.0-34.0); MCHC 33.8 g/dL (28.0-37.0); MCV 88.1 fL (80.0-100.0); MONOCYTES 10.6 % (1.0-8.0); PLATELET COUNT 189 thou/uL (150-400); POLYS 69.6 % (36.0-66.0); RBC 3.33 mil/uL (4.20-5.00); RDW 22.3 % (10.5-14.5); WBC 9.4 thou/uL (4.0-11.0)
[2017-01-20 05:18] LABS: MANUAL DIFF NO
[2017-01-20 05:34] LABS: CALCIUM 7.7 mg/dL (8.5-10.1); CREATININE 0.8 mg/dL (0.6-1.0)
[2017-01-20 06:21] LABS: ANISOCYTOSIS 3+
[2017-01-20 06:22] LABS: MACROCYTES 1+; MICROCYTES 2+; POLYCHROMASIA OCCASIONAL
[2017-01-20 08:52] VITALS: BP 183/73
[2017-01-20] MEDS ORDERED: MACROBID 100 M100 M1 PO (09:50)
[2017-01-20] MEDS ORDERED: SYNTHROID112 MCG PO (09:51)
[2017-01-20 11:49] VITALS: BP 183/73
[2017-01-20 13:23] VITALS: BP 183/73
== END 2017-01-20 13:56 | disposition home health service (06) | DRG 641 ==
LOC: ER 18:47 → 3N 20:14 → EROBS 20:14 → 3N 21:13
PROVIDERS: Emergency Medicine; Family Medicine; Nurse Practitioner Family
DX: E87.1 Hypo-osmolality and hyponatremia (principal); C92.10 Chronic myeloid leukemia, BCR/ABL-positive, not having achieved remission; T45.1X5A Adverse effect of antineoplastic and immunosuppressive drugs, initial encounter; J45.909 Unspecified asthma, uncomplicated; K13.79 Other lesions of oral mucosa; E11.9 Type 2 diabetes mellitus without complications; E03.9 Hypothyroidism, unspecified; I10 Essential (primary) hypertension; Z96.1 Presence of intraocular lens; Z90.49 Acquired absence of other specified parts of digestive tract; Z85.828 Personal history of other malignant neoplasm of skin; Z94.7 Corneal transplant status; Z86.74 Personal history of sudden cardiac arrest; Z88.1 Allergy status to other antibiotic agents; Z88.0 Allergy status to penicillin; Z88.8 Allergy status to other drugs, medicaments and biological substances; Z87.891 Personal history of nicotine dependence; Z79.899 Other long term (current) drug therapy
CPT/HCPCS: 10096

== ENCOUNTER 2017-03-20 18:03 | Emergency (ER) | payer OTHER ==
[~2017-03-20] VITALS: Ht 162.6 cm; Wt 84.4 kg
--- NOTE | ~2017-03-20 | EKG ---
[address] [address] ELECTROCARDIOGRAM REPORT Name: NATANAEL HINOJOSA [id number] Admission: 03/20/17 Attend Phys: Discharge: 03/20/17 Date of : 41 Report #: [id number] THIS REPORT FOR: //name// [facility] ED Test Date: 2017-03-20 Test Time: 18:19:58 Pat Name: NATANAEL HINOJOSA Department: Room: Gender: F Supervisor Rose Grading: FRIEDA : 1945 Requested By: Travon Marinelli Order Number: [id number] MD: Rudy Rai Measurements Intervals [place] Rate: 63 P: 46 RI: 149 QRS: -29 QRSD: 107 T: 6 QT: 424 QTc: 435 Interpretive Statements Sinus rhythm Probable left atrial enlargement Abnormal R-wave progression, late transition Left ventricular hypertrophy Compared to ECG 01/18/2017 19:01:16 No significant changes Electronically Signed On 03-20-2017 22:32:12 CDT by Rudy Rai [email or web address] <ELECTRONICALLY SIGNED> By: Rudy Rai MD 03/20/17 2232 18 18 Rudy Rai MD /EPI
[~2017-03-20 18:03] MED LIST changes: +ALLOPURINOL 30300 M2 PO; +BOSULIF500 MG PO; +CARAFATE 1 GM TA1 G1 PO; +IRON325 PO; +MACROBID 100 M100 M1 PO; +PEPCID20 MG PO; +TIMOLOL 0.25%
[2017-03-20 18:21] LABS: URINE BILIRUBIN NEGATIVE (Negative); URINE BLOOD NEGATIVE (Negative); URINE COLOR YELLOW; URINE GLUCOSE-RANDOM* NEGATIVE (Negative); URINE KETONES NEGATIVE (Negative); URINE LEUKOCYTES-REFLEX TRACE (Negative); URINE PROTEIN (DIPSTICK) NEGATIVE (Negative); URINE SPECIFIC GRAVITY <= 1.005 (1.003-1.035); URINE UROBILINOGEN 0.2 E.U./dl (0.2-1.0)
[2017-03-20 19:22] LABS: BASOPHILS 0.6 % (0.0-2.0); EOSINOPHILS 1.3 % (0.0-3.0); HEMOGLOBIN 9.7 gm/dL (12.0-15.0); LYMPHOCYTES 22.7 % (24.0-44.0); MCH 32.3 pg (26.0-34.0); MCHC 33.4 g/dL (28.0-37.0); MCV 96.9 fL (80.0-100.0); MONOCYTES 6.6 % (1.0-8.0); PLATELET COUNT 129 thou/uL (150-400); POLYS 68.8 % (36.0-66.0); RBC 2.99 mil/uL (4.20-5.00); RDW 13.9 % (10.5-14.5); WBC 8.7 thou/uL (4.0-11.0)
[2017-03-20 19:23] LABS: MANUAL DIFF NO
[2017-03-20 19:30] LABS: ANION GAP 4 mmol/L (7-16); BUN 17 mg/dL (7-18); CHLORIDE 94 mmol/L (98-107); CO2 28 mmol/L (21-32); CREATININE 1.1 mg/dL (0.6-1.0); GLUCOSE 115 mg/dL (74-106); SODIUM 126 mmol/L (136-145)
[2017-03-20 19:37] LABS: ALBUMIN 3.8 g/dL (3.4-5.0); ALKALINE PHOSPHATASE 98 U/L (46-116); MAGNESIUM 1.3 mg/dL (1.8-2.4); SGOT 21 U/L (15-37); SGPT 39 U/L (30-65); TOTAL BILIRUBIN 0.7 mg/dL (<0.1-1.0); TOTAL PROTEIN 7.2 g/dL (6.4-8.2); TROPONIN-I < 0.04 ng/mL (<0.04-0.07)
[2017-03-20 20:42] VITALS: BP 146/62
== END 2017-03-20 20:44 | disposition home or self-care (01) ==
LOC: ER 18:03
PROVIDERS: Emergency Medicine
DX: R53.1 Weakness (principal); E87.1 Hypo-osmolality and hyponatremia; R26.89 Other abnormalities of gait and mobility; E89.0 Postprocedural hypothyroidism; I50.9 Heart failure, unspecified; J45.909 Unspecified asthma, uncomplicated; Z90.49 Acquired absence of other specified parts of digestive tract; Z85.828 Personal history of other malignant neoplasm of skin; Z98.890 Other specified postprocedural states; Z86.79 Personal history of other diseases of the circulatory system; Z88.1 Allergy status to other antibiotic agents; Z88.0 Allergy status to penicillin; Z91.040 Latex allergy status; Z88.8 Allergy status to other drugs, medicaments and biological substances; Z87.891 Personal history of nicotine dependence

== ENCOUNTER → 2017-04-15 | Outpatient (CLI) | payer OTHER ==
[~2017-04-15] MED LIST changes: +VITAMIN B-12500 MCG PO
== END ==
LOC: RAD 11:50
DX: R06.00 Dyspnea, unspecified (principal)

== ENCOUNTER 2017-04-18 01:18 | Emergency (ER) | payer OTHER ==
[~2017-04-18] VITALS: Ht 157.5 cm; Wt 82.1 kg
--- NOTE | ~2017-04-18 | EKG ---
[address] [address] [facility] [place] [address] ELECTROCARDIOGRAM REPORT Name: NATANAEL HINOJOSA Harsha [id number] Admission: 04/18/17 Attend Phys: Discharge: 04/18/17 Date of : 41 Report #: [id number] THIS REPORT FOR: //name// [facility] ED Test Date: 2017-04-18 Test Time: 01:53:10 Pat Name: NATANAEL HINOJOSA Department: Room: Gender: F Transformation Manager: ri : 1945 Requested By: Linda Low Order Number: [id number] MD: Sang He Measurements Intervals [place] Rate: 61 P: 54 [place]: 150 QRS: -9 QRSD: 105 T: 19 QT: 440 QTc: 444 Interpretive Statements Sinus rhythm No significant abnormality Compared to ECG 03/20/2017 18:19:58 No significant change was found Electronically Signed On 04-19-2017 9:57:43 CDT by Sang He [email or web address] <ELECTRONICALLY SIGNED> By: Sang He MD, [facility] 04/19/17 0957 0153 0153 Sang He MD, FACC /EPI
[~2017-04-18 01:18] MED LIST changes: -VITAMIN B-12500 MCG PO
[2017-04-18 01:53] LABS: ABSOLUTE NEUTROPHILS 5.8 thou/uL (1.4-8.2); BASOPHILS 0.4 % (0.0-2.0); EOSINOPHILS 0.7 % (0.0-3.0); HEMATOCRIT 29.6 % (37.0-47.0); HEMOGLOBIN 9.6 gm/dL (12.0-15.0); MCH 32.8 pg (26.0-34.0); MCHC 32.5 g/dL (28.0-37.0); MONOCYTES 6.5 % (1.0-8.0); PLATELET COUNT 132 thou/uL (150-400); POLYS 72.4 % (36.0-66.0); RBC 2.93 mil/uL (4.20-5.00); RDW 14.6 % (10.5-14.5); WBC 7.9 thou/uL (4.0-11.0)
[2017-04-18 01:54] LABS: MANUAL DIFF NO
[2017-04-18 02:04] LABS: ANION GAP 11 mmol/L (7-16); BUN 21 mg/dL (7-18); CALCIUM 9.6 mg/dL (8.5-10.1); CHLORIDE 98 mmol/L (98-107); CO2 25 mmol/L (21-32); CREATININE 1.1 mg/dL (0.6-1.0); GLUCOSE 129 mg/dL (74-106); SODIUM 134 mmol/L (136-145)
[2017-04-18] MEDS ORDERED: VITAMIN B-12500 MCG PO (02:04)
[2017-04-18 02:12] LABS: TROPONIN-I < 0.04 ng/mL (<0.04-0.07)
[2017-04-18 03:22] VITALS: BP 124/50
== END 2017-04-18 03:24 | disposition home or self-care (01) ==
LOC: ER 01:18
PROVIDERS: Emergency Medicine
DX: R07.9 Chest pain, unspecified (principal); J45.909 Unspecified asthma, uncomplicated; I50.9 Heart failure, unspecified; Z90.49 Acquired absence of other specified parts of digestive tract; Z85.828 Personal history of other malignant neoplasm of skin; Z88.1 Allergy status to other antibiotic agents; Z88.8 Allergy status to other drugs, medicaments and biological substances; Z88.0 Allergy status to penicillin; Z91.040 Latex allergy status; Z87.891 Personal history of nicotine dependence

== ENCOUNTER 2017-05-18 11:27 | Emergency (ER) | payer OTHER ==
[~2017-05-18] VITALS: Ht 162.6 cm; Wt 77.6 kg
[~2017-05-18 11:27] MED LIST changes: +VITAMIN B-12500 MCG PO
[2017-05-18 12:38] LABS: HEMATOCRIT 33.1 % (37.0-47.0); HEMOGLOBIN 10.7 gm/dL (12.0-15.0); MCH 31.8 pg (26.0-34.0); MCHC 32.5 g/dL (28.0-37.0); MCV 97.8 fL (80.0-100.0); RBC 3.38 mil/uL (4.20-5.00); RDW 13.9 % (10.5-14.5); WBC 9.7 thou/uL (4.0-11.0)
[2017-05-18 12:45] LABS: CALCIUM 9.2 mg/dL (8.5-10.1); CREATININE 0.9 mg/dL (0.6-1.0); POTASSIUM 3.5 mmol/L (3.5-5.1)
[2017-05-18 12:49] LABS: ALBUMIN 3.6 g/dL (3.4-5.0); TOTAL BILIRUBIN 0.5 mg/dL (<0.1-1.0); TOTAL PROTEIN 7.2 g/dL (6.4-8.2)
[2017-05-18 14:01] LABS: URINE BILIRUBIN NEGATIVE (Negative); URINE BLOOD NEGATIVE (Negative); URINE COLOR YELLOW; URINE GLUCOSE-RANDOM* NEGATIVE (Negative); URINE KETONES TRACE (Negative); URINE LEUKOCYTES-REFLEX NEGATIVE (Negative); URINE PROTEIN (DIPSTICK) NEGATIVE (Negative); URINE SPECIFIC GRAVITY <= 1.005 (1.003-1.035); URINE UROBILINOGEN 0.2 E.U./dl (0.2-1.0)
[2017-05-18] MEDS ORDERED: FLAGYL500 MG PO (14:37)
[2017-05-18] MEDS ORDERED: CIPROFLOXACIN500 M1 PO (14:37)
[2017-05-18 15:51] VITALS: BP 134/53
== END 2017-05-18 15:00 | disposition home or self-care (01) ==
LOC: ER 11:27
PROVIDERS: Emergency Medicine
DX: K52.9 Noninfective gastroenteritis and colitis, unspecified (principal); I50.9 Heart failure, unspecified; J45.909 Unspecified asthma, uncomplicated; Z88.1 Allergy status to other antibiotic agents; Z90.49 Acquired absence of other specified parts of digestive tract; Z85.828 Personal history of other malignant neoplasm of skin; Z88.0 Allergy status to penicillin; Z91.040 Latex allergy status; Z88.8 Allergy status to other drugs, medicaments and biological substances; Z87.891 Personal history of nicotine dependence

== ENCOUNTER 2017-11-04 10:10 | Inpatient (IN) | payer OTHER, SELFPAY ==
[~2017-11-04] VITALS: Ht 162.6 cm; Wt 88.5 kg
--- NOTE | ~2017-11-04 | EKG ---
[address] [place] [address] ELECTROCARDIOGRAM REPORT Name: NATANAEL HINOJOSA Room #: 429-P ADM IN M.R.#: [id number] Admission: 11/04/17 Attend Phys: Jake Zepeda MD Discharge: Date of : 41 Report #: [id number] THIS REPORT FOR: //name// [facility] ED Test Date: 2017-11-04 Test Time: 10:25:10 Pat Name: NATANAEL HINOJOSA Department: Room: 429 Gender: F Equipment Operator [employer]: FRANSICO : 1945 Requested By: Linda Low Order Number: [id number] MD: Rudy Rai Measurements Intervals [place] Rate: 63 P: -8 NC: 146 QRS: -25 QRSD: 111 T: 14 QT: 463 QTc: 475 Interpretive Statements Sinus rhythm Left ventricular hypertrophy Compared to ECG 07/10/2017 21:55:15 No significant changes Electronically Signed On 11-05-2017 13:19:35 RESOURCE ROOM SPECIAL EDUCATION TEACHER by Rudy Rai [email or web address] <ELECTRONICALLY SIGNED> By: Rudy Rai MD 11/05/17 1319 1025 1025 Rudy Rai MD /MOODY
[~2017-11-04 10:10] MED LIST changes: +CIPROFLOXACIN500 M1 PO; +COZAAR 50 MG TA50 M2 PO; +FLAGYL500 MG PO; +SYNTHROID100 MCG PO
[2017-11-04 10:11] VITALS: BP 157/72
[2017-11-04 11:00] LABS: ABSOLUTE NEUTROPHILS 5.7 thou/uL (1.4-8.2); BASOPHILS 0.6 % (0.0-2.0); EOSINOPHILS 1.2 % (0.0-3.0); HEMATOCRIT 31.4 % (37.0-47.0); HEMOGLOBIN 10.7 gm/dL (12.0-15.0); LYMPHOCYTES 12.2 % (24.0-44.0); MCH 33.1 pg (26.0-34.0); MCHC 34.1 g/dL (28.0-37.0); MONOCYTES 3.7 % (1.0-8.0); PLATELET COUNT 173 thou/uL (150-400); POLYS 82.3 % (36.0-66.0); RBC 3.24 mil/uL (4.20-5.00); RDW 16.1 % (10.5-14.5); WBC 6.9 thou/uL (4.0-11.0)
[2017-11-04 11:08] LABS: ANION GAP 7 mmol/L (7-16); BUN 16 mg/dL (7-18); CHLORIDE 89 mmol/L (98-107); CO2 28 mmol/L (21-32); CREATININE 1.1 mg/dL (0.6-1.0); GLUCOSE 180 mg/dL (74-106); POTASSIUM 4.3 mmol/L (3.5-5.1); SODIUM 124 mmol/L (136-145)
[2017-11-04] MEDS ORDERED: OMEPRAZOLE 20 M20 M1 PO (11:08)
[2017-11-04] MEDS ORDERED: FLUOROMETHOLONE5 ML OPHTHALMIC (11:10)
[2017-11-04] MEDS ORDERED: IMATINIB MESYL400 MG PO (11:10)
[2017-11-04] MEDS ORDERED: BRIMONIDINE TAR15 M1 OPHTHALMIC (11:11)
[2017-11-04] MEDS ORDERED: ONDANSETRON HCL4 M2 PO (11:11)
[2017-11-04] MEDS ORDERED: TIMOLOL MALEATE5 M1 OPHTHALMIC (11:11)
[2017-11-04] MEDS ORDERED: K-DUR 20 MEQ T20 MEQ PO (11:11)
[2017-11-04] MEDS ORDERED: LISINOPRIL-HCT1 EAC1 PO (11:12)
[2017-11-04] MEDS ORDERED: DEMADEX20 MG PO (11:12)
[2017-11-04] MEDS ORDERED: METOPROLOL SUCC50 MG PO (11:12)
[2017-11-04] MEDS ORDERED: LIPITOR 20 MG T20 M1 PO (11:12)
[2017-11-04] MEDS ORDERED: METFORMIN HCL500 MG PO (11:13)
[2017-11-04 11:17] LABS: TROPONIN-I < 0.04 ng/mL (<0.06)
[2017-11-04 13:20] VITALS: BP 125/75
[2017-11-04 16:40] LABS: CALCIUM 7.5 mg/dL (8.5-10.1); CREATININE 1.1 mg/dL (0.6-1.0); POTASSIUM 3.9 mmol/L (3.5-5.1)
[2017-11-04 19:22] VITALS: BP 121/55
[2017-11-05 03:57] VITALS: BP 115/62
[2017-11-05 05:23] LABS: HEMATOCRIT 31.8 % (37.0-47.0); HEMOGLOBIN 10.7 gm/dL (12.0-15.0); MCH 33.3 pg (26.0-34.0); MCHC 33.7 g/dL (28.0-37.0); MCV 98.9 fL (80.0-100.0); RBC 3.21 mil/uL (4.20-5.00); RDW 16.2 % (10.5-14.5); WBC 6.6 thou/uL (4.0-11.0)
[2017-11-05 05:34] LABS: CALCIUM 7.4 mg/dL (8.5-10.1); POTASSIUM 3.8 mmol/L (3.5-5.1)
[2017-11-05 08:15] VITALS: BP 113/71
[2017-11-05 16:33] VITALS: BP 129/67
[2017-11-05 20:23] VITALS: BP 100/43
[2017-11-06 08:10] VITALS: BP 115/52
[2017-11-06 11:18] LABS: CALCIUM 7.9 mg/dL (8.5-10.1); CREATININE 0.8 mg/dL (0.6-1.0); POTASSIUM 4.2 mmol/L (3.5-5.1)
[2017-11-06] MEDS ORDERED: LISINOPRIL20 MG PO (14:09)
[2017-11-06 15:07] VITALS: BP 115/52
== END 2017-11-06 15:43 | disposition home or self-care (01) | DRG 391 ==
LOC: ER 10:10 → EROBS 11:32 → 4E 13:17
PROVIDERS: Emergency Medicine; Hospitalist
DX: K52.9 Noninfective gastroenteritis and colitis, unspecified (principal); E43 Unspecified severe protein-calorie malnutrition; E87.1 Hypo-osmolality and hyponatremia; C92.10 Chronic myeloid leukemia, BCR/ABL-positive, not having achieved remission; N17.9 Acute kidney failure, unspecified; E11.9 Type 2 diabetes mellitus without complications; E03.9 Hypothyroidism, unspecified; I11.0 Hypertensive heart disease with heart failure; I50.9 Heart failure, unspecified; I27.20 Pulmonary hypertension, unspecified; J45.909 Unspecified asthma, uncomplicated; E78.5 Hyperlipidemia, unspecified; Z85.89 Personal history of malignant neoplasm of other organs and systems; Z94.7 Corneal transplant status; Z88.0 Allergy status to penicillin; Z88.2 Allergy status to sulfonamides; Z88.8 Allergy status to other drugs, medicaments and biological substances; Z91.040 Latex allergy status; Z95.5 Presence of coronary angioplasty implant and graft; Z87.891 Personal history of nicotine dependence
CPT/HCPCS: 10183

== ENCOUNTER 2018-08-04 10:23 | Emergency (ER) | payer OTHER ==
[~2018-08-04] VITALS: Ht 162.6 cm; Wt 80.7 kg
[~2018-08-04 10:23] MED LIST changes: +BRIMONIDINE TAR15 M1 OPHTHALMIC; +DEMADEX20 MG PO; +FLUOROMETHOLONE5 ML OPHTHALMIC; +IMATINIB MESYL400 MG PO; +LIPITOR 20 MG T20 M1 PO; +LISINOPRIL-HCT1 EAC1 PO; +LISINOPRIL20 MG PO; +METFORMIN HCL500 MG PO; +METOPROLOL SUCC50 MG PO; +OMEPRAZOLE 20 M20 M1 PO; +ONDANSETRON HCL4 M2 PO; +TIMOLOL MALEATE5 M1 OPHTHALMIC
[2018-08-04 10:47] LABS: URINE BILIRUBIN NEGATIVE (Negative); URINE BLOOD NEGATIVE (Negative); URINE CLARITY CLEAR; URINE COLOR YELLOW; URINE GLUCOSE-RANDOM* 2+ (Negative); URINE KETONES TRACE (Negative); URINE LEUKOCYTES-REFLEX NEGATIVE (Negative); URINE NITRITE-REFLEX NEGATIVE (Negative); URINE PROTEIN (DIPSTICK) NEGATIVE (Negative); URINE UROBILINOGEN 0.2 E.U./dl (0.2-1.0)
[2018-08-04 11:07] LABS: ABSOLUTE NEUTROPHILS 14.3 thou/uL (1.4-8.2); BASOPHILS 0.3 % (0.0-2.0); EOSINOPHILS 0.3 % (0.0-3.0); HEMATOCRIT 35.9 % (37.0-47.0); HEMOGLOBIN 12.7 gm/dL (12.0-15.0); LYMPHOCYTES 8.4 % (24.0-44.0); MCHC 35.3 g/dL (28.0-37.0); MCV 90.7 fL (80.0-100.0); MONOCYTES 3.9 % (1.0-8.0); PLATELET COUNT 211 thou/uL (150-400); POLYS 87.1 % (36.0-66.0); RBC 3.95 mil/uL (4.20-5.00); RDW 14.5 % (10.5-14.5); WBC 16.4 thou/uL (4.0-11.0)
[2018-08-04 11:17] LABS: CALCIUM 7.8 mg/dL (8.5-10.1); POTASSIUM 4.4 mmol/L (3.5-5.1)
[2018-08-04 11:22] LABS: ALBUMIN 3.6 g/dL (3.4-5.0); DIRECT BILIRUBIN 0.1 mg/dL (<0.1-0.3); TOTAL BILIRUBIN 0.3 mg/dL (<0.1-1.0); TOTAL PROTEIN 7.4 g/dL (6.4-8.2)
[2018-08-04 12:42] VITALS: BP 153/68
[2018-08-04] MEDS ORDERED: REGLAN 5 MG TAB5 MG PO (13:06)
== END 2018-08-04 13:15 | disposition home or self-care (01) ==
LOC: ER 10:23
PROVIDERS: Emergency Medicine
DX: E87.1 Hypo-osmolality and hyponatremia (principal); R11.2 Nausea with vomiting, unspecified; I11.0 Hypertensive heart disease with heart failure; I50.30 Unspecified diastolic (congestive) heart failure; J45.909 Unspecified asthma, uncomplicated; E78.5 Hyperlipidemia, unspecified; E11.9 Type 2 diabetes mellitus without complications; Z87.891 Personal history of nicotine dependence; Z88.8 Allergy status to other drugs, medicaments and biological substances; Z91.040 Latex allergy status; Z88.0 Allergy status to penicillin; Z88.2 Allergy status to sulfonamides; Z90.89 Acquired absence of other organs; Z90.49 Acquired absence of other specified parts of digestive tract; Z85.828 Personal history of other malignant neoplasm of skin

== ENCOUNTER → 2018-08-22 | Outpatient (CLI) | payer OTHER ==
[~2018-08-22] MED LIST changes: +REGLAN 5 MG TAB5 MG PO
== END ==
LOC: RAD 15:13
DX: M47.812 Spondylosis without myelopathy or radiculopathy, cervical region (principal); R51 Headache

== ENCOUNTER 2018-09-25 20:35 | Emergency (ER) | payer OTHER ==
[~2018-09-25] VITALS: Ht 162.6 cm; Wt 88.5 kg
[2018-09-25 21:39] LABS: ABSOLUTE NEUTROPHILS 8.3 thou/uL (1.4-8.2); BASOPHILS 0.8 % (0.0-2.0); EOSINOPHILS 1.8 % (0.0-3.0); HEMATOCRIT 34.3 % (37.0-47.0); HEMOGLOBIN 11.6 gm/dL (12.0-15.0); LYMPHOCYTES 10.9 % (24.0-44.0); MCH 31.5 pg (26.0-34.0); MCV 92.6 fL (80.0-100.0); MONOCYTES 7.7 % (1.0-8.0); PLATELET COUNT 174 thou/uL (150-400); POLYS 78.8 % (36.0-66.0); RDW 14.5 % (10.5-14.5); WBC 10.5 thou/uL (4.0-11.0)
[2018-09-25 21:42] LABS: URINE CLARITY CLEAR; URINE COLOR YELLOW; URINE GLUCOSE-RANDOM* 3+ (Negative); URINE PROTEIN (DIPSTICK) NEGATIVE (Negative)
[2018-09-25 21:43] LABS: URINE BILIRUBIN NEGATIVE (Negative); URINE BLOOD NEGATIVE (Negative); URINE KETONES NEGATIVE (Negative); URINE LEUKOCYTES NEGATIVE (Negative); URINE NITRITE NEGATIVE (Negative); URINE UROBILINOGEN 0.2 E.U./dl (0.2-1.0)
[2018-09-25 21:47] LABS: ANION GAP 10 mmol/L (7-16); BUN 22 mg/dL (7-18); CALCIUM 8.1 mg/dL (8.5-10.1); CHLORIDE 92 mmol/L (98-107); CO2 25 mmol/L (21-32); CREATININE 1.3 mg/dL (0.6-1.0); GLUCOSE 395 mg/dL (74-106); POTASSIUM 4.4 mmol/L (3.5-5.1); SODIUM 127 mmol/L (136-145)
[2018-09-25 22:05] LABS: ALBUMIN 3.4 g/dL (3.4-5.0); DIRECT BILIRUBIN 0.2 mg/dL (<0.1-0.3); LIPASE 152 U/L (73-393); SGOT 16 U/L (15-37); SGPT 34 U/L (30-65); TOTAL BILIRUBIN 0.5 mg/dL (<0.1-1.0); TOTAL PROTEIN 7.2 g/dL (6.4-8.2); TROPONIN-I <0.06 ng/mL (<0.06)
[2018-09-25] MEDS ORDERED: CARAFATE 1 GM TA1 G1 PO (23:20)
[2018-09-25 23:37] VITALS: BP 135/51
--- NOTE | 2018-09-26 08:37 | EKG ---
[facility] [employer] [facility] [place] [address] ELECTROCARDIOGRAM REPORT Name: NATANAEL HINOJOSA Harsha Room #: DEP Robin#: [id number] Admission: 09/25/18 Attend Phys: Discharge: 09/25/18 Date of : 41 Report #: [id number] THIS REPORT FOR: //name// [facility] ED Test Date: 2018-09-25 Test Time: 20:36:31 Pat Name: NATANAEL HINOJOSA Department: Room: Gender: F Head Of English: ARTEM : 1945 Requested By: Flavio Roy Order Number: [id number] MD: Sang He Measurements Intervals [place] Rate: 73 P: 55 AL: 153 QRS: -29 QRSD: 106 T: 7 QT: 423 QTc: 467 Interpretive Statements Sinus rhythm Leftward axis Poor R wave progression Baseline wander in lead(s) I Compared to ECG 11/04/2017 10:25:10 No significant changes Electronically Signed On 09-26-2018 8:37:16 ORGANIZATIONAL DEVELOPMENT DIRECTOR by Sang He [email or web address] <ELECTRONICALLY SIGNED> By: Sang He MD, [facility] 09/26/18 0837 35 35 Sang He MD, [facility] /EPI
== END 2018-09-25 23:39 | disposition home or self-care (01) ==
LOC: ER 20:35
PROVIDERS: Nurse Practitioner
DX: K29.70 Gastritis, unspecified, without bleeding (principal); E87.1 Hypo-osmolality and hyponatremia; E78.5 Hyperlipidemia, unspecified; E11.9 Type 2 diabetes mellitus without complications; J45.909 Unspecified asthma, uncomplicated; I11.0 Hypertensive heart disease with heart failure; I50.9 Heart failure, unspecified; Z90.49 Acquired absence of other specified parts of digestive tract; E89.0 Postprocedural hypothyroidism; Z87.891 Personal history of nicotine dependence; Z88.0 Allergy status to penicillin; Z88.2 Allergy status to sulfonamides; Z88.1 Allergy status to other antibiotic agents; Z91.040 Latex allergy status; Z88.8 Allergy status to other drugs, medicaments and biological substances

== ENCOUNTER 2018-10-28 00:49 | Inpatient (IN) | payer OTHER ==
[~2018-10-28] VITALS: Ht 162.6 cm; Wt 86.6 kg
[2018-10-28 00:50] VITALS: BP 103/95
[2018-10-28 01:15] LABS: ABSOLUTE NEUTROPHILS 15.5 thou/uL (1.4-8.2); BASOPHILS 1.3 % (0.0-2.0); HEMATOCRIT 30.6 % (37.0-47.0); HEMOGLOBIN 10.4 gm/dL (12.0-15.0); LYMPHOCYTES 1.7 % (24.0-44.0); MCH 31.3 pg (26.0-34.0); MCHC 34.1 g/dL (28.0-37.0); MCV 91.6 fL (80.0-100.0); PLATELET COUNT 194 thou/uL (150-400); RBC 3.34 mil/uL (4.20-5.00); WBC 17.1 thou/uL (4.0-11.0)
[2018-10-28 01:19] LABS: ANION GAP 13 mmol/L (7-16); BUN 12 mg/dL (7-18); CALCIUM 8.7 mg/dL (8.5-10.1); CHLORIDE 85 mmol/L (98-107); CO2 20 mmol/L (21-32); GLUCOSE 310 mg/dL (74-106); POTASSIUM 4.5 mmol/L (3.5-5.1)
[2018-10-28 01:27] LABS: ALBUMIN 3.3 g/dL (3.4-5.0); MAGNESIUM 1.4 mg/dL (1.8-2.4); SGOT 15 U/L (15-37); SGPT 21 U/L (30-65); TOTAL BILIRUBIN 0.6 mg/dL (<0.1-1.0); TOTAL PROTEIN 6.5 g/dL (6.4-8.2); TROPONIN-I <0.06 ng/mL (<0.06)
[2018-10-28 01:28] LABS: SODIUM 118 mmol/L (136-145)
[2018-10-28 02:43] LABS: URINE BILIRUBIN NEGATIVE (Negative); URINE BLOOD NEGATIVE (Negative); URINE CLARITY CLEAR; URINE COLOR YELLOW; URINE GLUCOSE-RANDOM* 1+ (Negative); URINE KETONES NEGATIVE (Negative); URINE LEUKOCYTES-REFLEX NEGATIVE (Negative); URINE NITRITE-REFLEX NEGATIVE (Negative); URINE PROTEIN (DIPSTICK) NEGATIVE (Negative); URINE UROBILINOGEN 0.2 E.U./dl (0.2-1.0)
--- NOTE | 2018-10-28 02:55 | EKG ---
[address] [address] [place] [address] ELECTROCARDIOGRAM REPORT Name: NATANAEL HINOJOSA Room #: REG Robin#: [id number] ������������������ Admission: 10/28/18 ������������������ Attend Phys: Discharge: ������������������ Date of : 41 Report #: [id number] ����������������������������������������������������������������� [id number] THIS REPORT FOR: //name// [facility] ED Test Date: 2018-10-28 Test Time: 01:29:16 Pat Name: NATANAEL HINOJOSA Department: Room: Gender: F First Assistant: ARTEM : 1945 Requested By: Mauricio Novak Order Number: [id number] MD: Rafal Huggins Measurements Intervals [place] Rate: 86 P: 31 DE: 169 QRS: -23 QRSD: 108 T: 1 QT: 402 QTc: 481 Interpretive Statements Sinus rhythm left atrial enlargement Left ventricular hypertrophy Poor R-wave progression Baseline wander in lead(s) V2 Compared to ECG 09/25/2018 20:36:31 No significant symptoms Electronically Signed On 10-28-2018 2:54:57 PACK[employer]USAGE [employer] WIENER by Rafal Huggins [email or web address] ��������������������������������������������� <ELECTRONICALLY SIGNED> ���������������������������������������� By: Rafal Huggins MD ��������������������������������������������� 10/28/18 0254 0129 Rafal Huggins MD /EPI
[2018-10-28] MEDS ORDERED: ASPIR 8181 MG PO (09:44)
[2018-10-28] MEDS ORDERED: NORVASC5 MG PO (09:44)
[2018-10-28] MEDS ORDERED: QNASL8.7 GM INH (09:45)
[2018-10-28] MEDS ORDERED: BRIMONIDINE 0.110 ML OPHTHALMIC (09:46)
[2018-10-28] MEDS ORDERED: FLONASE 0.05%50 MCG NASAL (09:47)
[2018-10-28] MEDS ORDERED: LISINOPRIL40 MG PO (09:47)
[2018-10-28] MEDS ORDERED: TIMOLOL GL0.5 %/5 M1 OPHTHALMIC (09:49)
[2018-10-28] MEDS ORDERED: POTASSIUM20 PO (09:50)
[2018-10-28] MEDS ORDERED: LASIX 40 MG TAB40 M2 PO (09:50)
[2018-10-28] MEDS ORDERED: ONDANSETRON ODT4 MG PO (09:55)
[2018-10-28] MEDS ORDERED: GLEEVEC400 MG PO (09:55)
--- NOTE | 2018-10-28 11:10 | NUR ---
1109 - RECIEVED PHONE ORDER FROM DR. GRAY FOR 30ML OF MALOX ONE TIME NOW. MAR UPDATED. - SB
[2018-10-28 11:48] LABS: TSH 0.01 uIU/mL (0.358-3.740)
[2018-10-28 16:15] VITALS: BP 161/56
[2018-10-28 17:00] VITALS: BP 154/54
[2018-10-28 19:32] VITALS: BP 133/47
--- NOTE | 2018-10-29 01:50 | NUR ---
PT DENIED PAIN SO FAR.UP WITH SBA TO BSC.PT WAS FUSSY AT START OF SHIFT,COOPERATIVE AND CALM NOW.PT NEEDED CONSTANT REMINDER TO USE CALL LIGHT FOR ASSISTANCE.FALL,LATEX AND ISOLATION PREACUTIONS MAINTAINED.IVF INFUSING ORDERED.PT RESTING ON HER BED AT THIS TIME.CALL LIGHT WITHIN REACH.
[2018-10-29 03:58] VITALS: BP 127/52
[2018-10-29 06:18] LABS: HEMOGLOBIN 9.6 gm/dL (12.0-15.0); MCH 30.8 pg (26.0-34.0); MCHC 32.9 g/dL (28.0-37.0); MCV 93.6 fL (80.0-100.0); RBC 3.1 mil/uL (4.20-5.00); RDW 15.1 % (10.5-14.5); WBC 6.2 thou/uL (4.0-11.0)
[2018-10-29 06:45] LABS: ALBUMIN 2.7 g/dL (3.4-5.0); CALCIUM 8.5 mg/dL (8.5-10.1); CREATININE 0.7 mg/dL (0.6-1.0); TOTAL BILIRUBIN 0.2 mg/dL (<0.1-1.0); TOTAL PROTEIN 5.9 g/dL (6.4-8.2)
[2018-10-29 09:46] VITALS: BP 138/63
[2018-10-29] MEDS ORDERED: TAMIFLU30 MG PO (11:09)
[2018-10-29 11:43] VITALS: BP 138/63
--- NOTE | 2018-10-29 14:00 | NUR ---
PT ALERT AND ORIENTED TIMES FOUR. VSS, 100%RA, IVF INFUSING PER ORDER. PT DENIES PAIN/SOA. PT TOLERATES MEDS AND MEALS. PT UP TO RESTROOM WITH STEADY GAIT. PT PROGRESSING TOWARDS POC GOALS.
== END 2018-10-29 14:06 | disposition home or self-care (01) | DRG 865 ==
LOC: ER 00:49 → EROBS 03:26 → 4W 16:33
PROVIDERS: Emergency Medicine; Hospitalist; ADMIT Internal Medicine
DX: J10.89 Influenza due to other identified influenza virus with other manifestations (principal); E43 Unspecified severe protein-calorie malnutrition; I50.30 Unspecified diastolic (congestive) heart failure; E87.1 Hypo-osmolality and hyponatremia; C92.10 Chronic myeloid leukemia, BCR/ABL-positive, not having achieved remission; I27.20 Pulmonary hypertension, unspecified; J45.909 Unspecified asthma, uncomplicated; E78.5 Hyperlipidemia, unspecified; E11.9 Type 2 diabetes mellitus without complications; I11.0 Hypertensive heart disease with heart failure; E83.42 Hypomagnesemia; E03.9 Hypothyroidism, unspecified; Z79.899 Other long term (current) drug therapy; Z90.49 Acquired absence of other specified parts of digestive tract; Z94.7 Corneal transplant status; Z88.0 Allergy status to penicillin; Z88.2 Allergy status to sulfonamides; Z88.8 Allergy status to other drugs, medicaments and biological substances; Z91.040 Latex allergy status; Z87.891 Personal history of nicotine dependence
CPT/HCPCS: 10045

== ENCOUNTER → 2018-11-10 | Outpatient (CLI) | payer OTHER ==
[~2018-11-10] MED LIST changes: +ASPIR 8181 MG PO; +BRIMONIDINE 0.110 ML OPHTHALMIC; +GLEEVEC400 MG PO; +LASIX 40 MG TAB40 M2 PO; +NORVASC5 MG PO; +ONDANSETRON ODT4 MG PO; +POTASSIUM20 PO; +QNASL8.7 GM INH; +TAMIFLU30 MG PO; +TIMOLOL GL0.5 %/5 M1 OPHTHALMIC
[2018-11-10 11:46] VITALS: BP 119/58
--- NOTE | 2018-11-10 18:22 | LINQ ---
[facility] [place] [address] [employer] PROCEDURE REPORT Name: NATANAEL HINOJOSA Room #: REG Robin#: [id number] ������������� Admission: 11/10/18 ������������� Attend Phys: Rafal Ellison Discharge: ��� ������������� ��� Date of : 41 Date of Service: 11/10/181821 �� Report #: [id number] �������� ��������������������������������������������[id number] THIS REPORT FOR: //name// APPROVED REPORT Study performed: 11/10/2018 15:22:01 Patient Status: Out-Patient Room #: Event Personnel: Rafal Huggins Model Builder Display, Suzan Beltran, PABLO Scrub Exam: Loop Recorder Implant Indications: Palpitations The patient is a 73 year-old female with a history of intermittent Palpitations with lightheadedness and inconclusive event monitoring. Implanted Devices: [employer] Loop Recorder Implant model confirm Rx ICM 3500 serial number [id number] Procedure The patient underwent informed consent. We discussed the details of the procedure including the risks, which include, but not limited to bleeding, infection, vascular damage, cardiac perforation, and pneumothorax. She understood these risks and was willing to proceed. As such, was brought to the EP/Cardiac Catheterization laboratory in a fasting and sedated state and prepped and draped in a The patient chest was prepped and draped in usual sterile manner. No sedation was utilized except for local 1% lidocaine which was instilled along the post-insertion site and incision site. Utilizing both sharp and blunt dissection a pocket was developed and the device was delivered with the enclosed delivery mechanism. Underlying subcutaneous tissue was then sewn with 3-0 Vicryl to provide a closure of the tract. The skin was closed with a running subcuticular stitch utilizing 3-0 Vicryl. Steri-Strips 4 x 4 OpSite were placed. Patient tolerated procedure well there was no blood loss Complications The patient tolerated the procedure well and there were no complications associated with the procedure. Conclusion 1. Successful implantation of a [employer]iano's medical confirm Rx ICM 3500 implantable loop recorder under local anesthetic [address] [address] [employer] PROCEDURE REPORT Name: ASHISH,ANN E Room #: REG [facility]#: [id number] ������������� Admission: 11/10/18 ������������� Attend Phys: Rafal Ellison Discharge: ��� ������������� ��� Date of : 41 Date of Service: 11/10/181821 �� Report #: [id number] �������� ��������������������������������������������[id number] Recommendations 1. Routine post-insertion protocol ��������������������������������������������� <ELECTRONICALLY SIGNED> ���������������������������������������� By: Rafal Huggins MD ��������������������������������������������� 11/10/181821 21 182 Rafal Huggins MD /INF
== END | disposition home or self-care (01) ==
LOC: CATH 08:38
DX: R00.2 Palpitations (principal); R42 Dizziness and giddiness; I50.9 Heart failure, unspecified; I25.2 Old myocardial infarction; Z87.19 Personal history of other diseases of the digestive system; Z91.040 Latex allergy status; Z88.0 Allergy status to penicillin; Z88.2 Allergy status to sulfonamides; Z79.82 Long term (current) use of aspirin; Z79.899 Other long term (current) drug therapy; Z98.890 Other specified postprocedural states

== ENCOUNTER 2019-01-11 16:43 | Emergency (ER) | payer OTHER ==
[~2019-01-11] VITALS: Ht 162.6 cm; Wt 81.7 kg
[2019-01-11 17:45] LABS: CALCIUM 8.6 mg/dL (8.5-10.1); CREATININE 1.2 mg/dL (0.6-1.0); POTASSIUM 4.5 mmol/L (3.5-5.1)
[2019-01-11 19:09] LABS: URINE BILIRUBIN NEGATIVE (Negative); URINE BLOOD NEGATIVE (Negative); URINE CLARITY CLEAR; URINE COLOR YELLOW; URINE GLUCOSE-RANDOM* 3+ (Negative); URINE KETONES NEGATIVE (Negative); URINE LEUKOCYTES-REFLEX NEGATIVE (Negative); URINE NITRITE-REFLEX NEGATIVE (Negative); URINE PROTEIN (DIPSTICK) NEGATIVE (Negative); URINE SPECIFIC GRAVITY <= 1.005 (1.005-1.035); URINE UROBILINOGEN 0.2 E.U./dl (0.2-1.0)
[2019-01-11] MEDS ORDERED: LOMOTIL TABLET1 EACH PO (19:11)
[2019-01-11] MEDS ORDERED: PLAVIX 75 MG TA75 M1 PO (19:11)
[2019-01-11] MEDS ORDERED: FAMOTIDINE 20 M20 MG PO (19:12)
[2019-01-11] MEDS ORDERED: KEPPRA 500 MG500 M1 PO (19:12)
[2019-01-11] MEDS ORDERED: PROMS25 WY RECTAL (19:13)
[2019-01-11] MEDS ORDERED: QVAR REDIHALE10.6 G1 INH (19:14)
[2019-01-11] MEDS ORDERED: TASIGNA150 MG PO (19:14)
[2019-01-11] MEDS ORDERED: SPIRIVA INH (19:14)
[2019-01-11] MEDS ORDERED: TROKENDI XR25 MG PO (19:14)
[2019-01-11 20:00] VITALS: BP 118/47
== END 2019-01-11 20:02 | disposition home or self-care (01) ==
LOC: ER 16:43
PROVIDERS: Emergency Medicine
DX: E11.65 Type 2 diabetes mellitus with hyperglycemia (principal); I11.0 Hypertensive heart disease with heart failure; I50.9 Heart failure, unspecified; E78.5 Hyperlipidemia, unspecified; J45.909 Unspecified asthma, uncomplicated; E89.0 Postprocedural hypothyroidism; Z91.14 Patient's other noncompliance with medication regimen; Z87.891 Personal history of nicotine dependence; Z88.1 Allergy status to other antibiotic agents; Z88.0 Allergy status to penicillin; Z88.2 Allergy status to sulfonamides; Z91.040 Latex allergy status; Z88.8 Allergy status to other drugs, medicaments and biological substances; Z90.49 Acquired absence of other specified parts of digestive tract; Z85.828 Personal history of other malignant neoplasm of skin

== ENCOUNTER → 2019-05-02 | Outpatient (CLI) | payer OTHER ==
[~2019-05-02] MED LIST changes: +FAMOTIDINE 20 M20 MG PO; +KEPPRA 500 MG500 M1 PO; +LOMOTIL TABLET1 EACH PO; +PLAVIX 75 MG TA75 M1 PO; +PROMS25 WY RECTAL; +QVAR REDIHALE10.6 G1 INH; +SPIRIVA INH; +TASIGNA150 MG PO; +TROKENDI XR25 MG PO
== END ==
LOC: ULTRA 10:33
DX: R22.1 Localized swelling, mass and lump, neck (principal); E89.0 Postprocedural hypothyroidism

== ENCOUNTER 2019-11-03 04:15 | Emergency (ER) | payer OTHER ==
[~2019-11-03] VITALS: Ht 162.6 cm; Wt 95.3 kg
[2019-11-03 05:56] LABS: ABSOLUTE NEUTROPHILS 7.8 thou/uL (1.4-8.2); BASOPHILS 0.7 % (0.0-2.0); HEMOGLOBIN 11.6 gm/dL (12.0-15.0); LYMPHOCYTES 13.2 % (24.0-44.0); MCH 30.6 pg (26.0-34.0); MCHC 33.1 g/dL (28.0-37.0); MCV 92.4 fL (80.0-100.0); MONOCYTES 7.1 % (1.0-8.0); PLATELET COUNT 213 thou/uL (150-400); RBC 3.78 mil/uL (4.20-5.00); RDW 14.8 % (10.5-14.5)
[2019-11-03 06:10] LABS: CALCIUM 6.8 mg/dL (8.5-10.1); CREATININE 1.1 mg/dL (0.6-1.0); POTASSIUM 4.4 mmol/L (3.5-5.1)
[2019-11-03] MEDS ORDERED: NORCO 5-325 TA1 EAC1 PO (06:26)
[2019-11-03] MEDS ORDERED: VALIUM2 MG PO (06:26)
[2019-11-03 07:01] LABS: ALBUMIN 3.4 g/dL (3.4-5.0); PHOSPHORUS 5.1 mg/dL (2.5-4.9)
[2019-11-03] MEDS ORDERED: PREDNISONE 20 M20 MG PO (08:35)
[2019-11-03 08:55] VITALS: BP 171/55
== END 2019-11-03 09:00 | disposition home or self-care (01) ==
LOC: ER 04:15
PROVIDERS: Emergency Medicine Emergency Medical Services
DX: M54.32 Sciatica, left side (principal); E83.51 Hypocalcemia; M79.645 Pain in left finger(s); M25.542 Pain in joints of left hand; M79.662 Pain in left lower leg

== ENCOUNTER 2020-02-09 18:34 | Emergency (ER) | payer OTHER ==
[~2020-02-09] VITALS: Ht 162.6 cm; Wt 108.9 kg
[~2020-02-09 18:34] MED LIST changes: +NORCO 5-325 TA1 EAC1 PO; +VALIUM2 MG PO
[2020-02-09] MEDS ORDERED: LOMOTIL 2.5-0.01 TAB PO (18:56)
[2020-02-09] MEDS ORDERED: CALCIUM500 MG PO (18:59)
[2020-02-09] MEDS ORDERED: VITAMIN C100 MG PO (19:00)
[2020-02-09 19:03] LABS: ABSOLUTE NEUTROPHILS 5.7 thou/uL (1.4-8.2); BASOPHILS 0.7 % (0.0-2.0); EOSINOPHILS 1.9 % (0.0-3.0); HEMATOCRIT 32.5 % (37.0-47.0); MCH 31.5 pg (26.0-34.0); MCHC 33.8 g/dL (28.0-37.0); MCV 93.1 fL (80.0-100.0); MONOCYTES 9.2 % (1.0-8.0); PLATELET COUNT 213 thou/uL (150-400); POLYS 68.2 % (36.0-66.0); RBC 3.49 mil/uL (4.20-5.00); RDW 16.1 % (10.5-14.5); WBC 8.3 thou/uL (4.0-11.0)
[2020-02-09] MEDS ORDERED: TOUJEO SOL300 UNIT/1 SUBQ (19:04)
[2020-02-09] MEDS ORDERED: HUMALOG KW200 UNIT/1 SUBLING (19:05)
[2020-02-09 19:10] LABS: CALCIUM 6.7 mg/dL (8.5-10.1); CREATININE 1.1 mg/dL (0.6-1.0); POTASSIUM 4.8 mmol/L (3.5-5.1)
[2020-02-09 19:17] LABS: ALBUMIN 3.6 g/dL (3.4-5.0); TOTAL BILIRUBIN 0.3 mg/dL (0.2-1.0); TOTAL PROTEIN 7.4 g/dL (6.4-8.2)
[2020-02-09 19:39] LABS: URINE BILIRUBIN NEGATIVE (Negative); URINE BLOOD NEGATIVE (Negative); URINE CLARITY CLEAR; URINE COLOR YELLOW; URINE GLUCOSE-RANDOM* NEGATIVE (Negative); URINE KETONES NEGATIVE (Negative); URINE LEUKOCYTES-REFLEX NEGATIVE (Negative); URINE NITRITE-REFLEX NEGATIVE (Negative); URINE PROTEIN (DIPSTICK) NEGATIVE (Negative); URINE SPECIFIC GRAVITY <= 1.005 (1.005-1.035); URINE UROBILINOGEN 0.2 E.U./dl (0.2-1.0)
[2020-02-09] MEDS ORDERED: LEVAQUIN 500 M500 MG PO (20:35)
[2020-02-09 21:19] VITALS: BP 142/68
== END 2020-02-09 21:15 | disposition home or self-care (01) ==
LOC: ER 18:34
PROVIDERS: Emergency Medicine
DX: K52.9 Noninfective gastroenteritis and colitis, unspecified (principal); R10.84 Generalized abdominal pain; I10 Essential (primary) hypertension; E78.5 Hyperlipidemia, unspecified; E11.9 Type 2 diabetes mellitus without complications; J45.909 Unspecified asthma, uncomplicated; Z87.891 Personal history of nicotine dependence; Z88.3 Allergy status to other anti-infective agents; Z88.0 Allergy status to penicillin; Z88.2 Allergy status to sulfonamides; Z91.040 Latex allergy status; Z79.899 Other long term (current) drug therapy; Z79.4 Long term (current) use of insulin; Z90.49 Acquired absence of other specified parts of digestive tract

== ENCOUNTER → 2020-05-06 | Outpatient (CLI) | payer OTHER ==
[~2020-05-06] MED LIST changes: +CALCIUM500 MG PO; +HUMALOG KW200 UNIT/1 SUBLING; +LEVAQUIN 500 M500 MG PO; +LOMOTIL 2.5-0.01 TAB PO; +TOUJEO SOL300 UNIT/1 SUBQ; +VITAMIN C100 MG PO
== END ==
LOC: RAD 09:16
PROVIDERS: ATTEND Nurse Practitioner
DX: M50.30 Other cervical disc degeneration, unspecified cervical region (principal); M25.519 Pain in unspecified shoulder

== ENCOUNTER → 2020-06-18 | Outpatient (CLI) | payer OTHER ==
[~2020-06-18] VITALS: Ht 160 cm; Wt 96.2 kg
[~2020-06-18] MED LIST changes: +ALBUTEROL2.5 MG/0.5 INH; +FLONASE 0.05%50 MCG NARES; +FUROSEMIDE 20 M20 MG PO; +KEPPRA XR500 MG PO; +LIPITOR10 MG PO; +SPIRONOLACTONE25 MG PO
[2020-06-18 12:45] VITALS: BP 143/91
--- NOTE | 2020-06-18 13:03 | NUR ---
Pain Clinic Assessment: 1. History of Osteoarthritis: C-SPINE History of Rheumatoid Arthritis: Not Applicable 2. Height: 5 ft. 3 in. 160.0 cm. Weight: 212.0 lb. oz. 96.163 kg. Patient's BMI: 37.6 3. Vital Signs: BP: 143/91 Pulse: 70 Resp: 20 Temp: 02 Sat: 97 ECG Mon: 4. Pain Intensity: 8-9 5. Fall Risk: Dizziness: N Needs help standing or walking: Y Fallen in the last 3 months: N Fall risk comments: 6. Patient on Blood Thinner: Clopidogrel Bisulf(Plavix 7. History of Hypertension: Y 8. Opioid Therapy greater than 6 weeks: N Opiate Contract Signed: 9. Risk Assessment Tool Provided: 0-LOW RISK 10. Functional Assessment Tool: 11. Recreational Drug Use: Never Drug Type: Tobacco Use: Never Smoker Tobacco Type: Amount or Packs/day: How Many Years: Alcohol Use: No Frequency: Quant:
--- NOTE | 2020-07-02 15:48 | HPC ---
[facility] [place] [address] PAIN MANAGEMENT CONSULTATION Name: NATNAAEL HINOJOSA Room #: REG [facility] EthelMichaelMerly#: [id number] Admission: 06/18/20 Attend Phys: Ciara Quiroga MD Discharge: Date of : 41 Report #: [id number] CC: Marylou Quiroga DATE OF SERVICE: 06/18/2020 CHIEF COMPLAINT: Cervical neck pain. HISTORY: The patient complains of pain in her right shoulder and neck. This has been more problematic over the past month. Denies any new trauma. The patient has noticed that the pain has become more severe. Notes that when she lifts her arms, there is more problem. Has pain and discomfort while resting. The patient has used heat, ice, Tylenol, Aleve and Neurontin. Describes the pain as continuous, steady, constant, cramping, aching and rates it as a 9/10 at this point. The patient has been seen by [facility]. She has been referred to the pain clinic for possibility of a cervical epidural steroid injection. She has cervical spondylosis. Pain is most problematic in the right shoulder. Does note some increased weakness. 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 Has numbness and tingling down in her fingers. She has undergone physical therapy for about a month. She feels that, that worsen the pain. She was unable to undergo an MRI because of the length of the procedure. This exacerbated her discomfort. She has had no surgery. Has difficulty finding a position of comfort at night. She has noticed that on occasion her blood sugars drop. Her primary physician is making changes in her medications. She has had congestive heart failure in the past. ALLERGIES: TRAVATAN, DOXYCYCLINE, LATEX, ALLERGY/SENSITIVITY WITH REDNESS AND ITCHING, PENICILLIN, SULFA, TRAVOPROST. CURRENT MEDICATIONS: Ditropan XL, allopurinol 300 mg, iron 325 mg, vitamin B12 500 mcg daily, Plavix 75 mg, Phenergan 25 mg, rectal suppository for nausea and vomiting, QVAR RediHaler b.i.d., Tasigna 150 mg b.i.d., Spiriva, Lomotil 2.5-0.25 mg, calcium 1 tablet b.i.d., vitamin C 100 mg, Toujeo 300 units subcutaneous daily, insulin 200 units with meals, metoprolol 100 mg, aspirin 81 mg chewable, Timolol ophthalmic, ondansetron 4 mg p.r.n. PAST MEDICAL HISTORY: Leukemia, hypertension, HLD, asthma, CML, diabetes type 2, congestive heart failure, diastolic dysfunction, cardiac arrest on 12/20/2016. 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 SOCIAL HISTORY: The patient is retired. REVIEW OF SYSTEMS: Weight changes, glaucoma, eye disease, wears glasses, loss of appetite, frequent diarrhea, itching, numbness and tingling sensation, tremors/shaking hands, thyroid cancer, diabetes, easy bruising. LABORATORY DATA: X-rays performed at the doctor's office and interpreted included 3 views of the right shoulder. Showed mild degenerative changes of the acromioclavicular joint. There is type 2 acromion. The glenohumeral joint is well reduced with faint degenerative changes in the glenohumeral joint. Outside x-rays performed on 05/06/2020 were interpreted with the cervical spine showing C1 through T10 to be well visualized. There were no fractures. No cervical lordosis is noted. Multilevel cervical spondylosis. PAIN CLINIC ASSESSMENT AND PQRS: 1. History of osteoarthritis of the cervical spine. The patient is not being treated for rheumatoid arthritis. 2. Height 5 feet 3 inches, weight 212 pounds, BMI 37.6. 3. Vital Signs: Blood pressure 143/91, pulse 70, respiratory rate 20, room air saturation 97%. 4. Pain intensity, 8-9/10. 5. Fall history. The patient has not fallen in the last 3 months. 6. Blood thinner. The patient is on a blood thinning medication, Plavix. 7. History of hypertension. 8. Opioid therapy greater than 6 weeks. 9. Risk assessment tool, low for opioid use. 10. Functional assessment tool, 47/70. 11. Recreational drug use. The patient denies. 12. Tobacco. The patient has never smoked. 13. Alcohol. The patient denies use of alcoholic beverages. PHYSICAL EXAMINATION: GENERAL: The patient is a well-developed, white female. Appears her stated age. She is alert and oriented x 3. Has facial covering in place. MUSCULOSKELETAL: The patient has some limitation in movement in the upper cervical area. Complains of pain and discomfort involving the right arm with numbness and tingling down in the fingers. Has some pain in the midline area near the medial border of the right scapula. Has some decreased sales department supervisor strength. Decreased movement in her arm. 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 IMPRESSION: 1. Cervical radiculopathy. 2. Leukemia. 3. Hypertension. 4. Hypersensitivity lung disease. 5. Asthma. 6. Chronic myelogenous leukemia. 7. Diabetes type 2. 8. Congestive heart failure, diastolic dysfunction, cardiac arrest on 12/20/2016. RECOMMENDATIONS: We discussed treatment options with the patient. At this juncture, the patient states that she has not been taking her Plavix. She has a desire to undergo an epidural steroid injection at this point. We discussed the risks and benefits of the procedure. They include but are not limited to infection, worsening of pain, no improvement in pain, nerve damage, bleeding, and the patient elects to proceed. PROCEDURE NOTE: The patient was taken to the procedure area. She was then assisted in getting on the examination table. Her back was sterilely prepped with a Betadine solution in the neck area. A 0.25% bupivacaine was infiltrated at the C7-T1 interspace. Fluoroscopy using anterior and lateral viewing were implemented. The patient's back was anesthetized using a 25-gauge needle at the C7-T1. A 17-gauge Tuohy with loss of resistance technique was then used to gain access to the epidural space. There was no CSF, heme or paresthesia. Total of 120 mg triamcinolone was injected. The patient tolerated the procedure well. She remained in the pain clinic for an appropriate amount of time. She will follow up in the future as needed. We had already talked to the patient about steroids. They can increase blood sugars. They also could be problematic given the COVID-19 is pandemic. The patient was made aware of this and decided to undergo the procedure. We would like to thank you for letting us participate in her care. We hope she continues to improve. <ELECTRONICALLY SIGNED> By: Ciara Quiroga MD 07/02/20 1548 2351 0530 Ciara Quiroga MD /[facility]
== END | disposition home or self-care (01) ==
LOC: PAIN 06:50
PROVIDERS: ATTEND Anesthesiology Pain Medicine
DX: M54.12 Radiculopathy, cervical region (principal); G89.29 Other chronic pain; I11.0 Hypertensive heart disease with heart failure; I50.9 Heart failure, unspecified; I25.2 Old myocardial infarction; E78.5 Hyperlipidemia, unspecified; E11.9 Type 2 diabetes mellitus without complications; J45.909 Unspecified asthma, uncomplicated; Z98.890 Other specified postprocedural states; Z79.899 Other long term (current) drug therapy; Z90.49 Acquired absence of other specified parts of digestive tract; Z85.6 Personal history of leukemia; Z85.820 Personal history of malignant melanoma of skin; Z88.2 Allergy status to sulfonamides; Z88.0 Allergy status to penicillin; Z91.040 Latex allergy status

== ENCOUNTER → 2020-07-28 | Outpatient (CLI) | payer OTHER | LOC: SJCVC 11:09 | PROVIDERS: ATTEND Internal Medicine | DX: I49.5 Sick sinus syndrome (principal); I48.0 Paroxysmal atrial fibrillation; I11.0 Hypertensive heart disease with heart failure; I50.30 Unspecified diastolic (congestive) heart failure; I63.9 Cerebral infarction, unspecified ==

== ENCOUNTER 2020-10-23 10:32 | Emergency (ER) | payer OTHER ==
[~2020-10-23] VITALS: Ht 162.6 cm; Wt 98.4 kg
[2020-10-23 10:58] LABS: ABSOLUTE NEUTROPHILS 16.6 thou/uL (1.4-8.2); BASOPHILS 0.3 % (0.0-2.0); EOSINOPHILS 0.5 % (0.0-3.0); HEMATOCRIT 33.4 % (37.0-47.0); HEMOGLOBIN 10.8 gm/dL (12.0-15.0); MCH 31.7 pg (26.0-34.0); MCHC 32.4 g/dL (28.0-37.0); MCV 97.9 fL (80.0-100.0); MONOCYTES 4.1 % (1.0-8.0); PLATELET COUNT 213 thou/uL (150-400); POLYS 90.1 % (36.0-66.0); RBC 3.41 mil/uL (4.20-5.00); RDW 16.2 % (10.5-14.5); WBC 18.5 thou/uL (4.0-11.0)
[2020-10-23 11:13] LABS: ANION GAP 12 mmol/L (7-16); BUN 15 mg/dL (7-18); CALCIUM 6.7 mg/dL (8.5-10.1); CHLORIDE 94 mmol/L (98-107); CO2 23 mmol/L (21-32); CREATININE 1.2 mg/dL (0.6-1.0); GLUCOSE 224 mg/dL (74-106); POTASSIUM 4.4 mmol/L (3.5-5.1); SODIUM 129 mmol/L (136-145)
[2020-10-23 11:21] LABS: ALBUMIN 3.4 g/dL (3.4-5.0); SGOT 24 U/L (15-37); SGPT 26 U/L (30-65); TOTAL BILIRUBIN 0.3 mg/dL (0.2-1.0); TOTAL PROTEIN 6.9 g/dL (6.4-8.2); TROPONIN-I <0.06 ng/mL (<0.06)
[2020-10-23 12:02] LABS: MAGNESIUM 1.7 mg/dL (1.8-2.4); PHOSPHORUS 4.5 mg/dL (2.5-4.9)
[2020-10-23] MEDS ORDERED: ELIQUIS5 MG PO (12:42)
[2020-10-23] MEDS ORDERED: STIOLTO RESPIMAT4 GM PO (12:47)
[2020-10-23 12:56] LABS: URINE BILIRUBIN NEGATIVE (Negative); URINE BLOOD NEGATIVE (Negative); URINE CLARITY CLEAR; URINE COLOR YELLOW; URINE GLUCOSE-RANDOM* NEGATIVE (Negative); URINE KETONES NEGATIVE (Negative); URINE LEUKOCYTES-REFLEX NEGATIVE (Negative); URINE NITRITE-REFLEX NEGATIVE (Negative); URINE PROTEIN (DIPSTICK) NEGATIVE (Negative); URINE SPECIFIC GRAVITY <= 1.005 (1.005-1.035); URINE UROBILINOGEN 0.2 E.U./dl (0.2-1.0)
[2020-10-23 13:23] VITALS: BP 144/63
--- NOTE | 2020-10-24 07:05 | EKG ---
[address] [place] [address] ELECTROCARDIOGRAM REPORT Name: ASHISHNATANAEL Mcleod [facility] [id number] Admission: 10/23/20 Attend Phys: Discharge: 10/23/20 Date of : 41 Report #: [id number] [facility] ED Test Date: 2020-10-23 Test Time: 10:55:14 Pat Name: NATANAEL HINOJOSA Department: Room: Gender: F Senior Linux Engineer: MACARIO : 1945 Requested By: Marge Andrade Order Number: [id number] MD: Igor Mejia Measurements Intervals [place] Rate: 71 P: 23 UT: 141 QRS: -28 QRSD: 105 T: -16 QT: 476 QTc: 518 Interpretive Statements Sinus rhythm Borderline left axis deviation Borderline T abnormalities, inferior leads Prolonged QT interval Compared to ECG 10/28/2018 01:29:16 T-wave abnormality now present Prolonged QT interval now present Atrial abnormality no longer present Left ventricular hypertrophy no longer present Poor R-wave progression no longer present Electronically Signed On 10-24-2020 7:05:37 MOTION PICTURE SET GRIP by Igor Mejia [email or web address] <ELECTRONICALLY SIGNED> By: Igor Mejia MD, FACC 10/24/20 0705 1055 1055 Igor Mejia MD, [facility] /EPI
== END 2020-10-23 14:44 | disposition short-term general hospital (02) ==
LOC: ER 10:32
PROVIDERS: Physician Assistant
DX: I62.9 Nontraumatic intracranial hemorrhage, unspecified (principal); R55 Syncope and collapse; E83.51 Hypocalcemia; D72.829 Elevated white blood cell count, unspecified; I50.9 Heart failure, unspecified; Z79.01 Long term (current) use of anticoagulants; Z79.899 Other long term (current) drug therapy; Z87.891 Personal history of nicotine dependence; Z88.0 Allergy status to penicillin; Z88.1 Allergy status to other antibiotic agents; Z88.2 Allergy status to sulfonamides; Z88.8 Allergy status to other drugs, medicaments and biological substances; Z91.040 Latex allergy status

== ENCOUNTER → 2021-01-13 | Outpatient (CLI) | payer OTHER ==
[~2021-01-13] MED LIST changes: +ELIQUIS5 MG PO; +STIOLTO RESPIMAT4 GM PO
== END ==
LOC: SJCVC 09:59
PROVIDERS: ATTEND Internal Medicine
DX: R55 Syncope and collapse (principal); I48.0 Paroxysmal atrial fibrillation; I11.0 Hypertensive heart disease with heart failure; I50.31 Acute diastolic (congestive) heart failure; E78.5 Hyperlipidemia, unspecified; I63.9 Cerebral infarction, unspecified; E11.9 Type 2 diabetes mellitus without complications; I25.2 Old myocardial infarction; Z86.73 Personal history of transient ischemic attack (TIA), and cerebral infarction without residual deficits; Z87.891 Personal history of nicotine dependence; Z91.040 Latex allergy status; Z79.899 Other long term (current) drug therapy; Z79.4 Long term (current) use of insulin; Z95.0 Presence of cardiac pacemaker; Z88.2 Allergy status to sulfonamides; Z88.0 Allergy status to penicillin; Z88.1 Allergy status to other antibiotic agents

== ENCOUNTER → 2021-03-27 | Outpatient (CLI) | payer OTHER ==
[~2021-03-27] VITALS: Ht 162.6 cm; Wt 92.0 kg
[~2021-03-27] MED LIST changes: +AMITRIPTYLINE H10 M1 PO; +OXYBUTYNIN ER 55 M2 PO; +SYNTHROID100 MC1 PO; +ZOFRAN4 MG PO
[2021-03-27 11:04] VITALS: BP 138/58
--- NOTE | 2021-03-27 11:28 | NUR ---
Pain Clinic Assessment: 1. History of Osteoarthritis: C-SPINE History of Rheumatoid Arthritis: Not Applicable 2. Height: 5 ft. 4 in. 162.6 cm. Weight: 202.8 lb. oz. 91.990 kg. Patient's BMI: 34.8 3. Vital Signs: BP: 138/58 Pulse: 60 Resp: 16 Temp: 02 Sat: 97 ECG Mon: 4. Pain Intensity: 8 5. Fall Risk: Dizziness: N Needs help standing or walking: Y Fallen in the last 3 months: N Fall risk comments: 6. Patient on Blood Thinner: ELIQUIS 7. History of Hypertension: Y 8. Opioid Therapy greater than 6 weeks: N Opiate Contract Signed: 9. Risk Assessment Tool Provided: 0-LOW RISK 10. Functional Assessment Tool: 11. Recreational Drug Use: Never Drug Type: Tobacco Use: Never Smoker Tobacco Type: Amount or Packs/day: How Many Years: Alcohol Use: No Frequency: Quant:
== END ==
LOC: PAIN 06:50
PROVIDERS: ATTEND Anesthesiology Pain Medicine
DX: M54.12 Radiculopathy, cervical region (principal); C95.90 Leukemia, unspecified not having achieved remission; I11.0 Hypertensive heart disease with heart failure; J45.909 Unspecified asthma, uncomplicated; E11.9 Type 2 diabetes mellitus without complications; I50.9 Heart failure, unspecified; Z79.891 Long term (current) use of opiate analgesic; Z79.899 Other long term (current) drug therapy